=== PATIENT | male | born 1970 | race Caucasian/White ===

== ENCOUNTER 2019-02-03 15:29 | Emergency (ER) | payer MEDICARE, OTHER, SELFPAY ==
[2019-02-03 15:36] VITALS: BP 112/77; PULSE 96; RESP 19; TEMP 37.3; O2SAT 96; BMI 35.9
--- NOTE | 2019-02-03 15:45 | DI.RAD.S_ITS ---
PROCEDURE: XR LUMBAR SPINE 2-3V INDICATIONS: severe pain in lower back TECHNIQUE: 3 views of the lumbar spine were acquired. COMPARISON: None available. FINDINGS: Bones: 5 [id number] vertebrae are present. L5-S1 fixation hardware and intervertebral body spacer. No wes-hardware lucency seen. There is normal bony alignment. No vertebral body compression fractures. No suspicious bony lesions. Soft tissues: Overlying bowel gas pattern is normal. No suspicious soft tissue calcifications. IMPRESSION: No acute osseous abnormality. Dictated by: Con Morales M.D. on 02/03/2019 at 17:07 Approved by: Con Morales M.D. on 02/03/2019 at 17:09
[2019-02-03] MEDS: SODIUM CHLORIDE 0.9% 1,000 ML 1000 ML IV (17:20)
[2019-02-03 17:30] LABS: Add Manual Diff / Slide Review NO; Basophils Absolute Auto 0 /uL (0-100); Basophils Percent Auto 0.6 % (0-2); Eosinophils Absolute Auto 300 /uL (0-450); Eosinophils Percent Auto 3.8 % (2-4); Hematocrit 44.2 % (41-53); Hemoglobin 15.4 g/dL (13.5-17.5); Lymphocytes Absolute Auto 2000 /uL (1100-4500); Lymphocytes Percent Auto 25.4 % (25-40); Mean Corpuscular HGB Conc 34.8 % (30-36); Mean Corpuscular Hemoglobin 32.2 PG (26-34); Mean Corpuscular Volume 92.7 fL (80-100); Monocytes Absolute Auto 900 /uL (0-900); Monocytes Percent Auto 11.2 % (3-14); Neutrophils Absolute Auto 4600 /uL (1500-7000); Platelet Count 285 X10^3/uL (150-400); Red Blood Cell Count 4.77 X10^6/uL (4.5-5.9); Red Cell Distribution Width 14.1 % (11.6-14.8); White Blood Cell Count 7.7 X10^3/uL (4.5-11.0)
[2019-02-03 17:40] LABS: Alanine Aminotransferase 35 IU/L (21-72); Albumin 4.3 g/dL (3.5-5.0); Albumin Globulin Ratio 1.3 (1.0-2.8); Alkaline Phosphatase 61 U/L (38-126); Aspartate Aminotransferase 35 IU/L (17-59); BUN Creatinine Ratio 23.8 (6-22); Blood Urea Nitrogen 19 mg/dL (9-20); Calcium 9.7 mg/dL (8.4-10.2); Carbon Dioxide 25 mmol/L (22-32); Chloride 106 mmol/L (98-107); Estimated Glomerular Filt Rate > 60.0 mL/min (>60); Globulin 3.3 g/dL (1.7-4.1); Glucose 91 mg/dL (70-100); Potassium 3.9 mmol/L (3.4-5.1); Sodium 139 mmol/L (137-145); Total Protein 7.6 g/dL (6.3-8.2)
[2019-02-03 17:41] LABS: HEMOLYSIS 57 (0-50)
[2019-02-03 17:56] LABS: Procalcitonin < 0.05 ng/mL (<0.5)
[2019-02-03] MEDS: KETOROLAC 60 MG/2 ML VIAL IM (17:59)
[2019-02-03 18:05] VITALS: BP 121/69
[2019-02-03] MEDS: CYCLOBENZAPRINE 10 MG TABLET PO (19:15)
[2019-02-03 20:08] VITALS: BP 121/69; PULSE 77; RESP 18
--- NOTE | 2019-02-03 20:34 | ED.BACK ---
HPI - Back Pain/Injury <MICHELLE Esquivel - Last Filed: 02/03/19 20:38> General Chief Complaint: Back Pain/Injury Stated Complaint: back pain from physical therapy Time Seen by Provider: 02/03/19 16:11 Source: patient and family Mode of arrival: ambulatory Limitations: no limitations History of Present Illness HPI Narrative: The patient is a 48 year old male nonsmoker with history of hypertension who presents with a chief complaint of back pain. He states he has a history of back surgery. He states that his back pain got worse during physical therapy a few days ago. Now he cannot tolerate his pain. He has not taken any Tylenol or Motrin at home. He has tried ice. He denies any incontinence of bowel, incontinence of bladder saddle anesthesia. Denies any fever history of cancer. He denies any trauma. He states pain is cramping. His states that he has a cyst that has been present since his back surgery in 2012. He denies any dysuria urgency or frequency. Denies any fevers. Related Data Home Medications Medication Instructions Recorded Confirmed lisinopril 10 mg PO DAILY #0 02/10/16 02/03/19 sertraline [Zoloft] 200 mg PO DAILY #0 02/10/16 02/03/19 cholecalciferol (vitamin D3) 1,000 unit PO DAILY 02/03/19 02/03/19 levothyroxine 1 tab PO DAILY 02/03/19 02/03/19 methocarbamol 1,000 mg PO BID PRN 02/03/19 02/03/19 Previous Rx's Medication Instructions Recorded cyclobenzaprine 10 mg PO TID PRN #30 tab 02/03/19 ketorolac 10 mg PO TID PRN #30 tab 02/03/19 Allergies Allergy/AdvReac Type Severity Reaction Status Date / Time No Known Drug Allergies Allergy Verified 02/03/19 18:01 Review of Systems <MICHELLE Esquivel - Last Filed: 02/03/19 20:38> Review of Systems GENERAL: Denies chills, fatigue, malaise, fever, sweats. HEENT: Denies sinus pain, ear pain, sore throat, difficulty swallowing, dizziness. RESPIRATORY: Denies dyspnea, cough, wheezing, hemoptysis, sputum. CARDIOVASCULAR: Denies chest pain, palpitations, orthopnea, edema, GASTROINTESTINAL: Denies nausea, vomiting, abdominal pain, diarrhea, constipation, melena. : Denies dysuria, frequency, incontinence, hematuria, urinary retention. MUSCULOSKELETAL: See HPI SKIN: Denies rash, skin lesions, or other NEUROLOGIC: Denies weakness, headache, numbness, change in speech, confusion, seizures, incoordination. PSYCHIATRIC: No concerning psychosocial issues. 12 point review of systems is negative except for those stated above PFSH <MICHELLE Esquivel - Last Filed: 02/03/19 20:38> Medical History (Updated 02/03/19 @ 20:36 by MICHELLE Esquivel) Hypertension (Acute) Social History Smoking Status: Never smoker Social History Smoking Status: Never smoker Exam <MICHELLE Esquivel - Last Filed: 02/03/19 20:38> Narrative Exam Narrative: GENERAL: This is a well-nourished, well-developed patient, appears uncomfortable HEAD: Atraumatic. Normocephalic. No temporal or scalp tenderness. EYES: Pupils equal round and reactive. Extraocular motions intact. No scleral icterus. No injection or drainage. ENT: Nose without bleeding, purulent drainage or septal hematoma. Throat without erythema, tonsillar hypertrophy or exudate. Uvula midline. Airway patent. NECK: Trachea midline. No JVD or lymphadenopathy. Supple, nontender, no meningeal signs. CARDIOVASCULAR: Regular rate and rhythm without murmurs, gallops, or rubs. RESPIRATORY: Clear to auscultation. Breath sounds equal bilaterally. No wheezes, rales, or rhonchi. No cough. No increased respiratory effort. No accessory muscle use. GASTROINTESTINAL: Abdomen soft, non-tender, nondistended. No hepato-splenomegaly, or palpable masses. No guarding. EXTREMITIES: No clubbing, cyanosis, or edema. No joint tenderness, effusion, or edema noted. BACK: Pain to palpation of L-spine as well as bilateral paraspinal muscles of lumbar region. No pain to palpation of T-spine or C-spine. NEURO: AOx3. Strength is equal upper and lower extremities bilaterally. No gross cranial nerve deficit. Stable gait. Patient refused rectal exam. SKIN: No erythema rash ecchymosis laceration or abrasion noted over spine. Initial Vital Signs Initial Vital Signs: Vital Signs Temperature 99.1 F 02/03/19 15:36 Pulse Rate 96 H 02/03/19 15:36 Respiratory Rate 19 02/03/19 15:36 Blood Pressure 112/77 02/03/19 15:36 Pulse Oximetry 96 02/03/19 15:36 <Josh Kenyon DO - Last Filed: 02/04/19 07:31> Initial Vital Signs Initial Vital Signs: Vital Signs Temperature 99.1 F 02/03/19 15:36 Pulse Rate 96 H 02/03/19 15:36 Respiratory Rate 19 02/03/19 15:36 Blood Pressure 112/77 02/03/19 15:36 Pulse Oximetry 96 02/03/19 15:36 Course <MICHELLE Esquivel - Last Filed: 02/03/19 20:38> Orders Ordered: Discontinued Medications Cyclobenzaprine HCl (Flexeril) 10 mg PO NOW ONE Stop: 02/03/19 18:52 Last Admin: 02/03/19 19:15 Dose: 10 mg Sodium Chloride (Normal Saline 0.9%) 1,000 mls @ 1,000 mls/hr IV BOLUS ONE Stop: 02/03/19 18:10 Last Infusion: 02/03/19 18:35 Dose: 0 mls/hr Admin: 02/03/19 17:20 Dose: 1,000 mls/hr Ketorolac Tromethamine (Toradol) 60 mg IM NOW ONE Stop: 02/03/19 17:55 Last Admin: 02/03/19 17:59 Dose: 60 mg Vital Signs - 8 hr 02/03/19 15:36 02/03/19 18:05 02/03/19 20:08 Temperature 99.1 F Pulse Rate 96 H 77 Respiratory Rate 19 18 Blood Pressure 112/77 121/69 Blood Pressure [Right Arm] 121/69 Pulse Oximetry 96 <Josh Kenyon DO - Last Filed: 02/04/19 07:31> Orders Ordered: Discontinued Medications Cyclobenzaprine HCl (Flexeril) 10 mg PO NOW ONE Stop: 02/03/19 18:52 Last Admin: 02/03/19 19:15 Dose: 10 mg Sodium Chloride (Normal Saline 0.9%) 1,000 mls @ 1,000 mls/hr IV BOLUS ONE Stop: 02/03/19 18:10 Last Infusion: 02/03/19 18:35 Dose: 0 mls/hr Admin: 02/03/19 17:20 Dose: 1,000 mls/hr Ketorolac Tromethamine (Toradol) 60 mg IM NOW ONE Stop: 02/03/19 17:55 Last Admin: 02/03/19 17:59 Dose: 60 mg Vital Signs - 8 hr 02/03/19 15:36 02/03/19 18:05 02/03/19 20:08 Temperature 99.1 F Pulse Rate 96 H 77 Respiratory Rate 19 18 Blood Pressure 112/77 121/69 Blood Pressure [Right Arm] 121/69 Pulse Oximetry 96 MDM - Back Pain/Injury <CHRISSIE Esquivel- - Last Filed: 02/03/19 20:38> Lab Data Result diagrams: 02/03/19 17:16 02/03/19 17:16 Lab Results 02/03/19 02/03/19 02/03/19 Range/Units 17:16 17:16 17:16 WBC 7.7 (4.5-11.0) X10^3/uL RBC 4.77 (4.5-5.9) X10^6/uL Hgb 15.4 (13.5-17.5) g/dL Hct 44.2 (41-53) % MCV 92.7 (80-100) fL MCH 32.2 (26-34) PG MCHC 34.8 (30-36) % RDW 14.1 (11.6-14.8) % Plt Count 285 (150-400) X10^3/uL Neut % (Auto) 59.0 (50-75) % Lymph % (Auto) 25.4 (25-40) % [place] % (Auto) 11.2 (3-14) % Eos % (Auto) 3.8 (2-4) % Baso % (Auto) 0.6 (0-2) % Neut # (Auto) 4600 (9678-0179) /uL Lymph # (Auto) 2000 (4325-6921) /uL [place] # (Auto) 900 (0-900) /uL Eos # (Auto) 300 (0-450) /uL Baso # (Auto) 0 (0-100) /uL Sodium 139 (137-145) mmol/L Potassium 3.9 (3.4-5.1) mmol/L Chloride 106 (98-107) mmol/L Carbon Dioxide 25 (22-32) mmol/L BUN 19 (9-20) mg/dL Creatinine 0.80 (0.66-1.25) mg/dL Estimated GFR > 60.0 (>60) mL/min BUN/Creatinine Ratio 23.8 H (6-22) Glucose 91 (70-100) mg/dL Calcium 9.7 (8.4-10.2) mg/dL Total Bilirubin 1.0 (0.2-1.3) mg/dL AST 35 (17-59) IU/L ALT 35 (21-72) IU/L Alkaline Phosphatase 61 (38-126) U/L Total Protein 7.6 (6.3-8.2) g/dL Albumin 4.3 (3.5-5.0) g/dL Globulin 3.3 (1.7-4.1) g/dL Albumin/Globulin Ratio 1.3 (1.0-2.8) Procalcitonin < 0.05 (<0.5) ng/mL Urine Dip Bedside Urine Glucose Negative Bedside Urine Bilirubin + 1 Bedside Urine Ketone +/- 5 Urine Specific Ashley 1.030 Bedside Urine pH 6.0 Bedside Urine Protein +/- 15 Bedside Urine Urobilinogen - Negative Bedside Urine Nitrite - Negative Bedside Urine Leukocytes - Negative Esterase Imaging Data Lumbar x-ray: Radiologist's impression: [address] [address] XRay Report Signed Patient: Jace Marie#: [id number] : 1970Acct:[id number] Age/Sex: 48 / MDate of Service: 02/03/19 Loc: ED Accession Number: [id number] Procedure: XR lumbar spine 2-3V Ordering Provider: Barbara Wilson- PROCEDURE: XR LUMBAR SPINE 2-3V INDICATIONS: severe pain in lower back TECHNIQUE: 3 views of the lumbar spine were acquired. COMPARISON: None available. FINDINGS: Bones: 5 [id number] vertebrae are present. L5-S1 fixation hardware and intervertebral body spacer. No wes-hardware lucency seen. There is normal bony alignment. No vertebral body compression fractures. No suspicious bony lesions. Soft tissues: Overlying bowel gas pattern is normal. No suspicious soft tissue calcifications. IMPRESSION: No acute osseous abnormality. Dictated by: Con Morales M.D. on 02/03/2019 at 17:07 Approved by: Con Morales M.D. on 02/03/2019 at 17:09 [facility] Narrative Medical decision making narrative: The patient is a 48-year-old male who presents with a chief complaint of lower back pain. He was given Toradol as well as flexor in the emergency department felt much improved. He requested going to after this. He had a normal urinalysis. He is without neurological deficit, denies any incontinence of bowel, incontinence of bladder or saddle anesthesia. He declined a rectal exam in the ER. I discussed at length return precautions of any neurological deficit. Encouraged to follow up with PCP as well as his orthopedist. Discussed not taking any ibuprofen Aleve or any other NSAIDs along with the Toradol. Patient states understanding and has no questions regarding follow-up care or return precautions. His white count is normal, is procalcitonin is negative, in his renal function is good <Josh Kenyon, DO - Last Filed: 02/04/19 07:31> Lab Data Lab Results 02/03/19 02/03/19 02/03/19 Range/Units 17:16 17:16 17:16 WBC 7.7 (4.5-11.0) X10^3/uL RBC 4.77 (4.5-5.9) X10^6/uL Hgb 15.4 (13.5-17.5) g/dL Hct 44.2 (41-53) % MCV 92.7 (80-100) fL MCH 32.2 (26-34) PG MCHC 34.8 (30-36) % RDW 14.1 (11.6-14.8) % Plt Count 285 (150-400) X10^3/uL Neut % (Auto) 59.0 (50-75) % Lymph % (Auto) 25.4 (25-40) % [place] % (Auto) 11.2 (3-14) % Eos % (Auto) 3.8 (2-4) % Baso % (Auto) 0.6 (0-2) % Neut # (Auto) 4600 (4963-8548) /uL Lymph # (Auto) 2000 (1805-7444) /uL [place] # (Auto) 900 (0-900) /uL Eos # (Auto) 300 (0-450) /uL Baso # (Auto) 0 (0-100) /uL Sodium 139 (137-145) mmol/L Potassium 3.9 (3.4-5.1) mmol/L Chloride 106 (98-107) mmol/L Carbon Dioxide 25 (22-32) mmol/L BUN 19 (9-20) mg/dL Creatinine 0.80 (0.66-1.25) mg/dL Estimated GFR > 60.0 (>60) mL/min BUN/Creatinine Ratio 23.8 H (6-22) Glucose 91 (70-100) mg/dL Calcium 9.7 (8.4-10.2) mg/dL Total Bilirubin 1.0 (0.2-1.3) mg/dL AST 35 (17-59) IU/L ALT 35 (21-72) IU/L Alkaline Phosphatase 61 (38-126) U/L Total Protein 7.6 (6.3-8.2) g/dL Albumin 4.3 (3.5-5.0) g/dL Globulin 3.3 (1.7-4.1) g/dL Albumin/Globulin Ratio 1.3 (1.0-2.8) Procalcitonin < 0.05 (<0.5) ng/mL Urine Dip Bedside Urine Glucose Negative Bedside Urine Bilirubin + 1 Bedside Urine Ketone +/- 5 Urine Specific [place] 1.030 Bedside Urine pH 6.0 Bedside Urine Protein +/- 15 Bedside Urine Urobilinogen - Negative Bedside Urine Nitrite - Negative Bedside Urine Leukocytes - Negative Esterase Discharge Plan Departure Patient Disposition: Home Clinical Impression: Lumbar back pain Strain of lumbar region Qualifiers: Encounter type: initial encounter Qualified Code(s): S39.012A - Strain of muscle, fascia and tendon of lower back, initial encounter Discharge Date/Time: 02/03/19 19:55 Interventions: ED Discharge Assessment Last Done: 02/03/19 20:08 Instructions: DI for Back Spasm, DI for Back Strain or Sprain Activity Restrictions/Additional Instructions: I have given you a prescription of anti-inflammatories as well as a prescription of muscle relaxers for your back pain. Please do not combine the ketorolac with Aleve ibuprofen or any other NSAIDs Please follow up with primary care provider/orthopedist. Please come back to the emergency department for any acute concerns such as incontinence of bowel, incontinence of bladder or groin numbness. Prescriptions: New cyclobenzaprine 10 mg tablet 10 mg PO TID PRN (Reason: muscle spasm) Qty: 30 RF: 0 ketorolac 10 mg tablet 10 mg PO TID PRN (Reason: pain) Qty: 30 RF: 0 No Action sertraline [Zoloft] 100 MG tablet 200 mg PO DAILY Qty: 0 RF: 0 lisinopril 10 MG tablet 10 mg PO DAILY Qty: 0 RF: 0 methocarbamol 500 mg tablet 1,000 mg PO BID PRN (Reason: Spasms) RF: 0 cholecalciferol (vitamin D3) 1,000 unit capsule 1,000 unit PO DAILY RF: 0 levothyroxine 1 tab PO DAILY RF: 0 <Josh Kenyon DO - Last Filed: 02/04/19 07:31> [facility] ED Attending Meeta Attestation: I was available for consultation during this patient's emergency department encounter
--- NOTE | 2019-02-03 20:38 | ED_ITS ---
HPI - Back Pain/Injury <MICHELLE Esquivel - Last Filed: 02/03/19 20:38> General Chief Complaint: Back Pain/Injury Stated Complaint: back pain from physical therapy Time Seen by Provider: 02/03/19 16:11 Source: patient and family Mode of arrival: ambulatory Limitations: no limitations History of Present Illness HPI Narrative: The patient is a 48 year old male nonsmoker with history of h ypertension who presents with a chief complaint of back pain. He states he has a history of back surgery. He states that his back pain got worse during physical therapy a few days ago. Now he cannot tolerate his pain. He has not taken any Tylenol or Motrin at home. He has tried ice. He denies any incontinence of bowel, incontinence of bladder saddle anesthesia. Denies any fever history of cancer. He denies any trauma. He states pain is cramping. His states that he has a cyst that has been present since his back surgery in 2012. He denies any dysuria urgency or frequency. Denies any fevers. Related Data Home Medications Medication Instructions Recorded Confirmed lisinopril 10 mg PO DAILY #0 02/10/16 02/03/19 sertraline [Zoloft] 200 mg PO DAILY #0 02/10/16 02/03/19 cholecalciferol (vitamin D3) 1,000 unit PO DAILY 02/03/19 02/03/19 levothyroxine 1 tab PO DAILY 02/03/19 02/03/19 methocarbamol 1,000 mg PO BID PRN 02/03/19 02/03/19 Previous Rx's Medication Instructions Recorded cyclobenzaprine 10 mg PO TID PRN #30 tab 02/03/19 ketorolac 10 mg PO TID PRN #30 tab 02/03/19 Allergies Allergy/AdvReac Type Severity Reaction Status Date / Time No Known Drug Allergies Allergy Verified 02/03/19 18:01 Review of Systems <MICHELLE Esquivel - Last Filed: 02/03/19 20:38> Review of Systems GENERAL: Denies chills, fatigue, malaise, fever, sweats. HEENT: Denies sinus pain, ear pain, sore throat, difficulty swallowing, dizziness. RESPIRATORY: Denies dyspnea, cough, wheezing, hemoptysis, sputum. CARDIOVASCULAR: Denies chest pain, palpitations, orthopnea, edema, GASTROINTESTINAL: Denies nausea, vomiting, abdominal pain, diarrhea, constipation, melena. : Denies dysuria, frequency, incontinence, hematuria, urinary retention. MUSCULOSKELETAL: See HPI SKIN: Denies rash, skin lesions, or other NEUROLOGIC: Denies weakness, headache, numbness, change in speech, confusion, seizures, incoordination. PSYCHIATRIC: No concerning psychosocial issues. 12 point review of systems is negative except for those stated above PFSH <MICHELLE Esquivel - Last Filed: 02/03/19 20:38> Medical History (Updated 02/03/19 @ 20:36 by MICHELLE Esquivel) Hypertension (Acute) Social History Smoking Status: Never smoker Social History Smoking Status: Never smoker Exam <MICHELLE Esquivel - Last Filed: 02/03/19 20:38> Narrative Exam Narrative: GENERAL: This is a well-nourished, well-developed patient, appears uncomfortable HEAD: Atraumatic. Normocephalic. No temporal or scalp tenderness. EYES: Pupils equal round and reactive. Extraocular motions intact. No scleral icterus. No injection or drainage. ENT: Nose without bleeding, purulent drainage or septal hematoma. Throat without erythema, tonsillar hypertrophy or exudate. Uvula midline. Airway patent. NECK: Trachea midline. No JVD or lymphadenopathy. Supple, nontender, no meningeal signs. CARDIOVASCULAR: Regular rate and rhythm without murmurs, gallops, or rubs. RESPIRATORY: Clear to auscultation. Breath sounds equal bilaterally. No wheezes, rales, or rhonchi. No cough. No increased respiratory effort. No accessory muscle use. GASTROINTESTINAL: Abdomen soft, non-tender, nondistended. No hepato- splenomegaly, or palpable masses. No guarding. EXTREMITIES: No clubbing, cyanosis, or edema. No joint tenderness, effusion, or edema noted. BACK: Pain to palpation of L-spine as well as bilateral paraspinal muscles of lumbar region. No pain to palpation of T-spine or C-spine. NEURO: AOx3. Strength is equal upper and lower extremities bilaterally. No gross cranial nerve deficit. Stable gait. Patient refused rectal exam. SKIN: No erythema rash ecchymosis laceration or abrasion noted over spine. Initial Vital Signs Initial Vital Signs: Vital Signs Temperature 99.1 F 02/03/19 15:36 Pulse Rate 96 H 02/03/19 15:36 Respiratory Rate 19 02/03/19 15:36 Blood Pressure 112/77 02/03/19 15:36 Pulse Oximetry 96 02/03/19 15:36 <Josh Kenyon DO - Last Filed: 02/04/19 07:31> Initial Vital Signs Initial Vital Signs: Vital Signs Temperature 99.1 F 02/03/19 15:36 Pulse Rate 96 H 02/03/19 15:36 Respiratory Rate 02/03/19 15:36 Blood Pressure 112/77 02/03/19 15:36 Pulse Oximetry 96 02/03/19 15:36 Course <MICHELLE Esquivel - Last Filed: 02/03/19 20:38> Orders Ordered: Discontinued Medications Cyclobenzaprine HCl (Flexeril) 10 mg PO NOW ONE Stop: 02/03/19 18:52 Last Admin: 02/03/19 19:15 Dose: 10 mg Sodium Chloride (Normal Saline 0.9%) 1,000 mls @ 1,000 mls/hr IV BOLUS ONE Stop: 02/03/19 18:10 Last Infusion: 02/03/19 18:35 Dose: 0 mls/hr Admin: 02/03/19 17:20 Dose: 1,000 mls/hr Ketorolac Tromethamine (Toradol) 60 mg IM NOW ONE Stop: 02/03/19 17:55 Last Admin: 02/03/19 17:59 Dose: 60 mg Vital Signs - 8 hr 02/03/19 15:36 02/03/19 18:05 02/03/19 20:08 Temperature 99.1 F Pulse Rate 96 H 77 Respiratory Rate 19 18 Blood Pressure 112/77 121/69 Blood Pressure [Right Arm] 121/69 Pulse Oximetry 96 <Josh Kenyon DO - Last Filed: 02/04/19 07:31> Orders Ordered: Discontinued Medications Cyclobenzaprine HCl (Flexeril) 10 mg PO NOW ONE Stop: 02/03/19 18:52 Last Admin: 02/03/19 19:15 Dose: 10 mg Sodium Chloride (Normal Saline 0.9%) 1,000 mls @ 1,000 mls/hr IV BOLUS ONE Stop: 02/03/19 18:10 Last Infusion: 02/03/19 18:35 Dose: 0 mls/hr Admin: 02/03/19 17:20 Dose: 1,000 mls/hr Ketorolac Tromethamine (Toradol) 60 mg IM NOW ONE Stop: 02/03/19 17:55 Last Admin: 02/03/19 17:59 Dose: 60 mg Vital Signs - 8 hr 02/03/19 15:36 02/03/19 18:05 02/03/19 20:08 Temperature 99.1 F Pulse Rate 96 H 77 Respiratory Rate 19 18 Blood Pressure 112/77 121/69 Blood Pressure [Right Arm] 121/69 Pulse Oximetry 96 MDM - Back Pain/Injury <CHRISSIE Esquivel- - Last Filed: 02/03/19 20:38> Lab Data Result diagrams: 02/03/19 17:16 02/03/19 17:16 Lab Results 02/03/19 02/03/19 02/03/19 Range/Units 17:16 17:16 17:16 WBC 7.7 (4.5-11.0) X10^3/uL RBC 4.77 (4.5-5.9) X10^6/uL Hgb 15.4 (13.5-17.5) g/dL Hct 44.2 (41-53) % MCV 92.7 (80-100) fL MCH 32.2 (26-34) PG MCHC 34.8 (30-36) % RDW 14.1 (11.6-14.8) % Plt Count 285 (150-400) X10^3/uL Neut % (Auto) 59.0 (50-75) % Lymph % (Auto) 25.4 (25-40) % [place] % (Auto) 11.2 (3-14) % Eos % (Auto) 3.8 (2-4) % Baso % (Auto) 0.6 (0-2) % Neut # (Auto) 4600 (3289-0997) /uL Lymph # (Auto) 2000 (4561-6807) /uL [place] # (Auto) 900 (0-900) /uL Eos # (Auto) 300 (0-450) /uL Baso # (Auto) 0 (0-100) /uL Sodium 139 (137-145) mmol/L Potassium 3.9 (3.4-5.1) mmol/L Chloride 106 (98-107) mmol/L Carbon Dioxide 25 (22-32) mmol/L BUN 19 (9-20) mg/dL Creatinine 0.80 (0.66-1.25) mg/dL Estimated GFR > 60.0 (>60) mL/min BUN/Creatinine Ratio 23.8 H (6-22) Glucose 91 (70-100) mg/dL Calcium 9.7 (8.4-10.2) mg/dL Total Bilirubin 1.0 (0.2-1.3) mg/dL AST 35 (17-59) IU/L ALT 35 (21-72) IU/L Alkaline Phosphatase 61 (38-126) U/L Total Protein 7.6 (6.3-8.2) g/dL Albumin 4.3 (3.5-5.0) g/dL Globulin 3.3 (1.7-4.1) g/dL Albumin/Globulin Ratio 1.3 (1.0-2.8) Procalcitonin < 0.05 (<0.5) ng/mL Urine Dip Bedside Urine Glucose Negative Bedside Urine Bilirubin + 1 Bedside Urine Ketone +/- 5 Urine Specific [place] 1.030 Bedside Urine pH 6.0 Bedside Urine Protein +/- 15 Bedside Urine Urobilinogen - Negative Bedside Urine Nitrite - Negative Bedside Urine Leukocytes - Negative Esterase Imaging Data Lumbar x-ray: Radiologist's impression: [address] [address] XRay Report Signed Patient: Jace MarieMR#: [id number] : 1970Acct:[id number] Age/Sex: 48 / MDate of Service: 02/03/19 Loc: ED Accession Number: [id number] Procedure: XR lumbar spine 2-3V Ordering Provider: Barbara Wilson- PROCEDURE: XR LUMBAR SPINE 2-3V INDICATIONS: severe pain in lower back TECHNIQUE: 3 views of the lumbar spine were acquired. COMPARISON: None available. FINDINGS: Bones: 5 [id number] vertebrae are present. L5-S1 fixation hardware and intervertebral body spacer. No wes-hardware lucency seen. There is normal bony alignment. No vertebral body compression fractures. No suspicious bony lesions. Soft tissues: Overlying bowel gas pattern is normal. No suspicious soft tissue calcifications. IMPRESSION: No acute osseous abnormality. Dictated by: Con Morales M.D. on 02/03/2019 at 17:07 Approved by: Con Morales M.D. on 02/03/2019 at 17:09 [facility] Narrative Medical decision making narrative: The patient is a 48-year-old male who presents with a chief complaint of lower back pain. He was given Toradol as well as flexor in the emergency department felt much improved. He requested going to after this. He had a normal urinalysis. He is without neurological deficit, denies any incontinence of bowel, incontinence of bladder or saddle anesthesia. He declined a rectal exam in the ER. I discussed at length return precautions of any neurological deficit. Encouraged to follow up with PCP as well as his orthopedist. Discussed not taking any ibuprofen Aleve or any other NSAIDs along with the Toradol. Patient states understanding and has no questions regarding follow-up care or return precautions. His white count is normal, is procalcitonin is negative, in his renal function is good <Josh Kenyon, DO - Last Filed: 02/04/19 07:31> Lab Data Lab Results 02/03/19 02/03/19 02/03/19 Range/Units 17:16 17:16 17:16 WBC 7.7 (4.5-11.0) X10^3/uL RBC 4.77 (4.5-5.9) X10^6/uL Hgb 15.4 (13.5-17.5) g/dL Hct 44.2 (41-53) % MCV 92.7 (80-100) fL MCH 32.2 (26-34) PG MCHC 34.8 (30-36) % RDW 14.1 (11.6-14.8) % Plt Count 285 (150-400) X10^3/uL Neut % (Auto) 59.0 (50-75) % Lymph % (Auto) 25.4 (25-40) % [place] % (Auto) 11.2 (3-14) % Eos % (Auto) 3.8 (2-4) % Baso % (Auto) 0.6 (0-2) % Neut # (Auto) 4600 (0937-7224) /uL Lymph # (Auto) 2000 (6553-0604) /uL [place] # (Auto) 900 (0-900) /uL Eos # (Auto) 300 (0-450) /uL Baso # (Auto) 0 (0-100) /uL Sodium 139 (137-145) mmol/L Potassium 3.9 (3.4-5.1) mmol/L Chloride 106 (98-107) mmol/L Carbon Dioxide 25 (22-32) mmol/L BUN 19 (9-20) mg/dL Creatinine 0.80 (0.66-1.25) mg/dL Estimated GFR > 60.0 (>60) mL/min BUN/Creatinine Ratio 23.8 H (6-22) Glucose 91 (70-100) mg/dL Calcium 9.7 (8.4-10.2) mg/dL Total Bilirubin 1.0 (0.2-1.3) mg/dL AST 35 (17-59) IU/L ALT 35 (21-72) IU/L Alkaline Phosphatase 61 (38-126) U/L Total Protein 7.6 (6.3-8.2) g/dL Albumin 4.3 (3.5-5.0) g/dL Globulin 3.3 (1.7-4.1) g/dL Albumin/Globulin Ratio 1.3 (1.0-2.8) Procalcitonin < 0.05 (<0.5) ng/mL Urine Dip Bedside Urine Glucose Negative Bedside Urine Bilirubin + 1 Bedside Urine Ketone +/- 5 Urine Specific [place] 1.030 Bedside Urine pH 6.0 Bedside Urine Protein +/- 15 Bedside Urine Urobilinogen - Negative Bedside Urine Nitrite - Negative Bedside Urine Leukocytes - Negative Esterase Discharge Plan Departure Patient Disposition: Home Clinical Impression: Lumbar back pain Strain of lumbar region Qualifiers: Encounter type: initial encounter Qualified Code(s): S39.012A - Strain of muscle, fascia and tendon of lower back, initial encounter Discharge Date/Time: 02/03/19 19:55 Interventions: ED Discharge Assessment Last Done: 02/03/19 20:08 Instructions: DI for Back Spasm, DI for Back Strain or Sprain Activity Restrictions/Additional Instructions: I have given you a prescription of anti-inflammatories as well as a prescription of muscle relaxers for your back pain. Please do not combine the ketorolac with Aleve ibuprofen or any other NSAIDs Please follow up with primary care provider/orthopedist. Please come back to the emergency department for any acute concerns such as incontinence of bowel, incontinence of bladder or groin numbness. Prescriptions: New cyclobenzaprine 10 mg tablet 10 mg PO TID PRN (Reason: muscle spasm) Qty: 30 RF: 0 ketorolac 10 mg tablet 10 mg PO TID PRN (Reason: pain) Qty: 30 RF: 0 No Action sertraline [Zoloft] 100 MG tablet 200 mg PO DAILY Qty: 0 RF: 0 lisinopril 10 MG tablet 10 mg PO DAILY Qty: 0 RF: 0 methocarbamol 500 mg tablet 1,000 mg PO BID PRN (Reason: Spasms) RF: 0 cholecalciferol (vitamin D3) 1,000 unit capsule 1,000 unit PO DAILY RF: 0 levothyroxine 1 tab PO DAILY RF: 0 <Josh Kenyon DO - Last Filed: 02/04/19 07:31> [facility] Att[facility]: I was available for consultation during this patient's emergency department encounter
== END 2019-02-03 19:55 | disposition home or self-care (01) ==
PROVIDERS: Emergency Provider Nurse Practitioner Family
DX: S39.012A Strain of muscle, fascia and tendon of lower back, initial encounter (principal)
CPT/HCPCS: 36415; 36591; 72100; 80053; 81003; 84145; 85025; 96360; 96361; 96372; 99283; 99284; J1885

== ENCOUNTER 2019-02-14 12:33 | Emergency (ER) | payer MEDICARE, OTHER, SELFPAY ==
[2019-02-14 12:35] VITALS: BP 133/76; PULSE 92; RESP 18; TEMP 36.9; O2SAT 98
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
[2019-02-14] MEDS: HYDROMORPHONE 1 MG INJ IV (13:30)
[2019-02-14] MEDS: ONDANSETRON 4 MG/2 ML INJ IV ×2 (13:30→15:55)
[2019-02-14] MEDS: SODIUM CHLORIDE 0.9% 1,000 ML 1000 ML IV (13:30)
[2019-02-14] MEDS: PROPARACAINE 0.5% OPHTH SOL 1 DROPS EYE-LEFT (13:39)
[2019-02-14 14:08] VITALS: BP 113/62; PULSE 77; RESP 93; O2SAT 98
[2019-02-14 15:00] VITALS: BP 103/60; PULSE 79; RESP 16; O2SAT 97
[2019-02-14] MEDS: KETOROLAC 60 MG/2 ML VIAL 30 MG IV (15:55)
[2019-02-14 15:58] VITALS: BP 103/50; PULSE 80; RESP 18; O2SAT 98
[2019-02-14] MEDS: HYDROCODONE/ACET 10/325 TABLET 1 TAB PO (16:00)
== END 2019-02-14 16:08 | disposition home or self-care (01) ==
PROVIDERS: Emergency Provider Emergency Medicine
DX: S05.12XA Contusion of eyeball and orbital tissues, left eye, initial encounter (principal)
CPT/HCPCS: 70450; 70487; 72125; 96361; 96374; 96375; 96376; 99283; 99285; J1170; J1885; J2405; Q9967

== ENCOUNTER 2020-02-22 23:51 | Emergency (ER) | payer MEDICARE, OTHER, SELFPAY ==
--- NOTE | 2020-02-22 23:53 | ED_ITS ---
HPI - Ear Problem General Chief complaint: Ear Stated complaint: got water in ear/getting worse Time Seen by Provider: 02/22/20 23:52 Source: patient and family Mode of arrival: Ambulatory Limitations: no limitations History of Present Illness HPI Narrative: 49-year-old nonsmoker with history hypothyroidism presents with few days of worsening left ear pain and now drainage. He states that he was in the shower and got some water in his left ear a few days ago and since then his symptoms have greatly worsened. He states that he picked at it bit with his finger, also inserted a Q-tip. He denies any traumatic injury. He has had no fever or chills but does admit to pain in his left jaw, pain with chewing. He does have some drainage and decreased ability to hear. He is not diabetic. He denies any runny nose, sore throat or fever or chills. MD Complaint: ear pain, ear discharge and decreased hearing Location: left ear Duration: constant Severity: severe Relieving factors: nothing Exacerbating factors: chewing and palpation Discharge from ear: yes - purulent Associated symptoms ear: decreased hearing, headache, external ear tenderness and ear swelling Treatment prior to arrival: none Related Data Home Medications Medication Instructions Recorded Confirmed lisinopril 10 mg PO DAILY #0 02/10/16 02/14/19 sertraline [Zoloft] 200 mg PO DAILY #0 02/10/16 02/14/19 cholecalciferol (vitamin D3) 1,000 unit PO DAILY 02/03/19 02/14/19 levothyroxine 1 tab PO DAILY 02/03/19 02/14/19 methocarbamol 750 mg PO DAILY PRN 02/03/19 02/14/19 Previous Rx's Medication Instructions Recorded hydrocodone-acetaminophen 1 tab PO Q4-6H PRN #7 tab 02/14/19 ondansetron 4 mg PO Q6H PRN #10 tab 02/14/19 ciprofloxacin HCl 750 mg PO BID #10 tab 02/23/20 ciprofloxacin-dexamethasone 4 drop EAR-LEFT BID #7.5 ml 02/23/20 [Ciprodex] Allergies Allergy/AdvReac Type Severity Reaction Status Date / Time No Known Drug Allergies Allergy Verified 02/14/19 12:38 Review of Systems Review of Systems ROS Unobtainable: All systems reviewed & are unremarkable except as noted in HPI and below Constitutional Constitutional: Denies chills, Denies fatigue, Denies fever(s), Denies frequent falls, Reports headache(s), Denies lethargy and Denies weakness Eyes Eyes: Denies change in vision, Denies eye discharge, Denies irritation and Denies loss of vision ENT Ears, Nose, Mouth, and Throat: Denies change in voice, Denies dizziness, Reports ear discharge, Reports otalgia, Reports headache(s), Denies neck pain, Denies sore throat and Denies throat swelling Cardiovascular Cardiovascular: Denies chest pain, Denies irregular heart rhythm, Denies lightheadedness, Denies palpitations, Denies dyspnea, Denies dyspnea on exertion and Denies orthopnea Respiratory Respiratory: Denies cough, Denies dyspnea, Denies dyspnea on exertion and Denies wheezing Gastrointestinal Gastrointestinal: Denies abdominal pain, Denies change in bowel habits, Denies diarrhea, Denies nausea and Denies vomiting Musculoskeletal Musculoskeletal: Denies neck pain and Denies numbness Integumentary/Breasts Skin/Breast: Denies pruritus, Denies erythema, Denies rash and Denies wounds Neurologic Neurologic: Denies behavioral changes, Denies confusion, Denies dizziness, Denies frequent falls, Reports headache(s), Denies loss of vision, Denies numbness and Denies weakness Psychiatric Psychiatric: Denies anxiety, Denies behavioral changes, Denies confusion, Denies depression, Denies homicidal ideation and Denies suicidal ideation Endocrine Endocrine: Denies fatigue, Denies flushing and Denies palpitations Hematologic/Lymphatic Hematologic/Lymphatic: Denies easy bruising Allergic/Immunologic Allergic/Immunologic: Denies urticaria, Denies throat swelling and Denies wheezing Patient History Medical History Hypertension (Acute) Surgical History Previous back surgery (Acute) Social History Smoking Status: Never smoker Smoking Status: Never smoker alcohol intake frequency: a few times a month Substance Use Type: does not use Exam Narrative Exam Narrative: GENERAL: [49] year old patient appears stated age. Well- nourished, well-developed patient, in obvious pain. HEAD: Atraumatic. Normocephalic. EYES: Pupils equal round and reactive. Extraocular motions intact. No scleral icterus. No injection or drainage. ENT: L EAC edematous with purulent drainage. TM appears stewart with normal l andmarks. No pinna swelling, though very painful with external manipulation. L mastoid TTP, no erythema, edema, bogginess. Nose without bleeding, purulent drainage. Throat without erythema, tonsillar hypertrophy or exudate. Airway patent. NECK: Trachea midline. Non tender CARDIOVASCULAR: Regular rate and rhythm without murmurs, gallops, or rubs. RESPIRATORY: Clear to auscultation. Breath sounds equal bilaterally. No wheezes, rales, or rhonchi. GASTROINTESTINAL: Abdomen soft, non-tender, nondistended. EXTREMITIES: No edema or joint tenderness. BACK: Nontender without deformity or crepitance. No flank tenderness. NEURO: AOx3. SKIN: No rash or erythema of visible areas Initial Vital Signs Initial Vital Signs: Vital Signs Temperature 98 F 02/22/20 23:59 Pulse Rate 95 H 02/22/20 23:59 Respiratory Rate 18 02/22/20 23:59 Blood Pressure 144/72 H 02/22/20 23:59 Pulse Oximetry 98 02/22/20 23:59 Course Orders Ordered: ED Orders 02/23/20 00:41 CT mastoid temporal Stat 02/23/20 00:45 Basic Metabolic Panel Stat C-Reactive Protein Quant Stat Complete Blood Count AUTO DIFF Stat Erythrocyte Sedimentation Rate Stat Ciprofloxacin (Cipro) 400 mg in 200 mls @ 200 mls/hr IV NOW OMAR Last Admin: 02/23/20 01:00 Dose: 200 mls/hr Documented by: AIXA Discontinued Medications Hydrocodone Bitart/Acetaminophen (Vicodin 5/325 Prepack) 1 bottle MISC SEEINSTR ONE Stop: 02/23/20 01:46 Last Admin: 02/23/20 01:51 Dose: 1 bottle Documented by: AMAURI Sodium Chloride (Normal Saline 0.9%) 1,000 mls @ 1,000 mls/hr IV BOLUS ONE Stop: 02/23/20 01:32 Last Admin: 02/23/20 01:00 Dose: 1,000 mls/hr Documented by: AIXA Ketorolac Tromethamine (Toradol) 15 mg IV NOW ONE Stop: 02/23/20 00:35 Last Admin: 02/23/20 01:00 Dose: 15 mg Documented by: AIXA Consultations Consultation #1: call to ENT given concern for malignant otitis externa. Dr. Klein requests Kaye, follow up in office later today. Call at 0730 for appointment. Time: 00:10 Vital Signs Vital signs: Vital Signs - 8 hr 02/22/20 23:59 02/23/20 01:55 Temperature 98 F Pulse Rate 95 H 74 Respiratory Rate 18 16 Blood Pressure 144/72 H 125/77 Pulse Oximetry 98 100 Medical Decision Making Lab Data Result diagrams: 02/23/20 00:45 02/23/20 00:45 Labs: Lab Results 02/23/20 02/23/20 Range/Units 00:45 00:45 WBC 10.4 (4.5-11.0) X10^3/uL RBC 4.72 (4.5-5.9) X10^6/uL Hgb 15.0 (13.5-17.5) g/dL Hct 43.4 (41-53) % MCV 91.9 (80-100) fL MCH 31.8 (26-34) PG MCHC 34.6 (30-36) % RDW 14.1 (11.6-14.8) % Plt Count 282 (150-400) X10^3/uL Neut % (Auto) 67.7 (50-75) % Lymph % (Auto) 19.6 L (25-40) % [place] % (Auto) 9.1 (3-14) % Eos % (Auto) 3.0 (2-4) % Baso % (Auto) 0.6 (0-2) % Neut # (Auto) 7100 H (3553-3964) /uL Lymph # (Auto) 2000 (6847-1507) /uL [place] # (Auto) 900 (0-900) /uL Eos # (Auto) 300 (0-450) /uL Baso # (Auto) 100 (0-100) /uL ESR 2 (0-15) MM/HR Sodium 140 (137-145) mmol/L Potassium 4.4 (3.4-5.1) mmol/L Chloride 106 (98-107) mmol/L Carbon Dioxide 27 (22-32) mmol/L BUN 18 (9-20) mg/dL Creatinine 0.92 (0.66-1.25) mg/dL Estimated GFR > 60.0 (>60) mL/min BUN/Creatinine Ratio 19.6 (6-22) Glucose 103 H (70-100) mg/dL Calcium 9.3 (8.4-10.2) mg/dL C-Reactive Protein 1.3 H (<1.0) mg/dL Imaging Data CT Mastoid: Radiologist's Impression: Bilateral mastoid air cells are clear. Small amount of fluid is present in the left middle ear cavity and edema of left external auditory canal.No bone erosion or destruction Discharge Plan Departure Patient Disposition: Home Clinical Impression: Otitis externa Qualifiers: Otitis externa type: unspecified type Chronicity: acute Laterality: left Qualified Code(s): H60.502 - Unspecified acute noninfective otitis externa, left ear Instructions: Otitis Externa Activity Restrictions/Additional Instructions: *You have been diagnosed with [acute otitis externa] *What to do: *Take medications as directed * I have spoken with Dr. Klein (ENT) and he wants to see you later today. His office starts answering the phones at 0730, please call and let them know t hat you were seen in the emergency department and that I (Dr. Morris) spoke with Dr. Klein and he wants to see you today. *Return to ER if you should have any new, worsening or concerning symptoms Prescriptions: New ciprofloxacin HCl 750 mg tablet 750 mg PO BID Qty: 10 RF: 0 Ciprodex 0.3-0.1 % drops,suspension 4 drop EAR-LEFT BID Qty: 7.5 RF: 0 No Action sertraline [Zoloft] 100 MG tablet 200 mg PO DAILY Qty: 0 RF: 0 lisinopril 10 MG tablet 10 mg PO DAILY Qty: 0 RF: 0 methocarbamol 500 mg tablet 750 mg PO DAILY PRN (Reason: Spasms) RF: 0 cholecalciferol (vitamin D3) 1,000 unit capsule 1,000 unit PO DAILY RF: 0 levothyroxine 1 tab PO DAILY RF: 0 hydrocodone-acetaminophen 5-325 mg tablet 1 tab PO Q4-6H PRN (Reason: pain) Qty: 7 RF: 0 ondansetron 4 mg tablet,disintegrating 4 mg PO Q6H PRN (Reason: nausea and vomiting) Qty: 10 RF: 0 Referrals: Howie Klein MD [Physician] - Mundo Dinero ARNP [Primary Care Provider] -
[2020-02-22 23:59] VITALS: BP 144/72; PULSE 95; RESP 18; TEMP 36.6; O2SAT 98
--- NOTE | 2020-02-23 | PC.NURSE ---
Pt states he was taking a shower and got water in his L ear. used a QTip to help get it out which caused pain. Per , states when she looked into his ear she saw that it was oozing and appeared swollen.
--- NOTE | 2020-02-23 00:41 | DI.CT.S_ITS ---
PROCEDURE: CT MASTOID TEMPORAL INDICATIONS: pain on mastoid, obvious otitis externa COMPARISON: [facility], CT, CT FACIAL BONES W CON, 02/14/2019, 13:42. [facility], CT, CT CERVICAL SPINE WO CON, 02/14/2019, 12:52. [facility], CT, CT HEAD/BRAIN WO CON, 02/14/2019, 12:52. TECHNIQUE: Noncontrast 0.6 mm thick direct axial and coronal sections acquired through each temporal bone separately. FINDINGS: Image quality: Excellent. RIGHT: External auditory canal: Canal has a normal appearance. Middle ear: The middle ear structures, including the ossicles and tympanic membrane, appear normal. There is minimal amount of fluid present. Inner ear: Inner ear is normally formed and appears unremarkable. Facial nerve appears normal throughout is course. Mastoids: Mastoid air cells are clear. LEFT: External auditory canal: Canal demonstrates minimal edema. Middle ear: The middle ear structures, including the ossicles and tympanic membrane, appear normal. Minimal to mild fluid is present. Inner ear: Inner ear is normally formed and appears unremarkable. Facial nerve appears normal throughout its course. Mastoids: Mastoid air cells are clear. MISCELLANEOUS: Visualized surrounding bones appear unremarkable. Visualized intracranial structures, including the cerebellopontine angle cisterns, appear normal. IMPRESSION: 1. Minimal to mild bilateral male air-fluid with mild edema of the right external auditory canal. Recommend correlation to otitis. The above findings are concordant with preliminary report. Dictated by: Stephany Muro M.D. on 02/23/2020 at 11:42 Approved by: Stephany Muro M.D. on 02/23/2020 at 11:49
[2020-02-23 00:56] LABS: Add Manual Diff / Slide Review NO; Basophils Absolute Auto 100 /uL (0-100); Basophils Percent Auto 0.6 % (0-2); Eosinophils Absolute Auto 300 /uL (0-450); Hematocrit 43.4 % (41-53); Lymphocytes Absolute Auto 2000 /uL (1100-4500); Lymphocytes Percent Auto 19.6 % (25-40); Mean Corpuscular HGB Conc 34.6 % (30-36); Mean Corpuscular Hemoglobin 31.8 PG (26-34); Mean Corpuscular Volume 91.9 fL (80-100); Monocytes Absolute Auto 900 /uL (0-900); Monocytes Percent Auto 9.1 % (3-14); Neutrophils Absolute Auto 7100 /uL (1500-7000); Neutrophils Percent Auto 67.7 % (50-75); Platelet Count 282 X10^3/uL (150-400); Red Blood Cell Count 4.72 X10^6/uL (4.5-5.9); Red Cell Distribution Width 14.1 % (11.6-14.8); White Blood Cell Count 10.4 X10^3/uL (4.5-11.0)
[2020-02-23] MEDS: CIPROFLOXACIN 400 MG/200 ML PIGGYBACK 200 MG IV (01:00)
[2020-02-23] MEDS: SODIUM CHLORIDE 0.9% 1,000 ML 1000 ML IV (01:00)
[2020-02-23] MEDS: KETOROLAC 60 MG/2 ML VIAL 15 MG IV (01:00)
[2020-02-23 01:05] LABS: BUN Creatinine Ratio 19.6 (6-22); Blood Urea Nitrogen 18 mg/dL (9-20); C-Reactive Protein Quant 1.3 mg/dL (<1.0); Calcium 9.3 mg/dL (8.4-10.2); Carbon Dioxide 27 mmol/L (22-32); Chloride 106 mmol/L (98-107); Estimated Glomerular Filt Rate > 60.0 mL/min (>60); Glucose 103 mg/dL (70-100); HEMOLYSIS 49 (0-50); Potassium 4.4 mmol/L (3.4-5.1); Sodium 140 mmol/L (137-145)
[2020-02-23 01:10] LABS: Erythrocyte Sedimentation Rate 2 MM/HR (0-15)
[2020-02-23] MEDS: HYDROCODONE/ACET 5/325 PREPACK 1 BOTTLE MISC (01:51)
[2020-02-23 01:55] VITALS: BP 125/77; PULSE 74; RESP 16; O2SAT 100
== END 2020-02-23 02:12 | disposition home or self-care (01) ==
PROVIDERS: Emergency Provider Emergency Medicine; PCP Nurse Practitioner Family
DX: H60.502 Unspecified acute noninfective otitis externa, left ear (principal)
CPT/HCPCS: 36415; 70480; 80048; 85025; 85651; 86140; 96365; 96375; 99284; J0744; J1885

== ENCOUNTER 2020-02-24 18:05 | Emergency (ER) | payer MEDICARE, OTHER, SELFPAY ==
[2020-02-24 18:11] VITALS: PULSE 96; O2SAT 97
[2020-02-24 18:12] VITALS: BP 143/91; PULSE 97; RESP 17; TEMP 37.7; O2SAT 97; BMI 34.8
[2020-02-24 18:30] VITALS: PULSE 91; O2SAT 95
[2020-02-24] MEDS: MORPHINE 4 MG/ML INJ IV ×2 (18:34→20:01)
[2020-02-24 18:40] VITALS: BP 135/90; PULSE 88; O2SAT 96
[2020-02-24 18:46] LABS: Add Manual Diff / Slide Review NO; Basophils Absolute Auto 100 /uL (0-100); Basophils Percent Auto 0.6 % (0-2); Eosinophils Absolute Auto 200 /uL (0-450); Eosinophils Percent Auto 2.2 % (2-4); Hematocrit 44.1 % (41-53); Hemoglobin 15.3 g/dL (13.5-17.5); Lymphocytes Absolute Auto 1800 /uL (1100-4500); Lymphocytes Percent Auto 17.2 % (25-40); Mean Corpuscular HGB Conc 34.7 % (30-36); Mean Corpuscular Hemoglobin 31.9 PG (26-34); Mean Corpuscular Volume 91.9 fL (80-100); Monocytes Absolute Auto 1000 /uL (0-900); Neutrophils Absolute Auto 7600 /uL (1500-7000); Platelet Count 287 X10^3/uL (150-400); Red Cell Distribution Width 13.6 % (11.6-14.8); White Blood Cell Count 10.6 X10^3/uL (4.5-11.0)
[2020-02-24] MEDS: ONDANSETRON 4 MG/2 ML INJ IV (18:47)
[2020-02-24 18:58] LABS: Lactate (Lactic Acid) 0.7 mmol/L (0.7-2.1)
[2020-02-24 19:01] LABS: C-Reactive Protein Quant 5.8 mg/dL (<1.0)
[2020-02-24 19:26] LABS: Procalcitonin < 0.05 ng/mL (<0.5)
--- NOTE | 2020-02-24 19:34 | PC.NURSE ---
Could not visualize tympanic membrane due to ear packing. The patient complains of left ear tenderness that radiates to the back of his head, down to the back of his neck, and to his left neck and partial shoulder
[2020-02-24] MEDS: OXYCODONE/ACETAMINOPHEN 5/325 TABLET 1 TAB PO (20:01)
[2020-02-24] MEDS: KETOROLAC 60 MG/2 ML VIAL 15 MG IV (20:01)
[2020-02-24] MEDS: ACETAMINOPHEN 325 MG TABLET PO (20:01)
[2020-02-24] MEDS: OXYCODONE/APAP 5/325 PREPACK 1 BOTTLE MISC (20:02)
[2020-02-24] MEDS: ONDANSETRON 4 MG ODT PREPACK 1 BOTTLE MISC (20:02)
--- NOTE | 2020-02-24 20:16 | ED.EAR ---
HPI - Ear Problem <JAGRUTI Flynn - Last Filed: 02/24/20 23:04> General Chief complaint: Ear Stated complaint: left ear infection/fever Time Seen by Provider: 02/24/20 18:07 Source: patient and family Mode of arrival: Ambulatory Limitations: no limitations History of Present Illness HPI Narrative: This is a 49-year-old male, nonsmoker, who presents to ED with spouse with chief complain of increasing left ear pain and fever with chills. Patient was evaluated 2 nights ago for left ear pain and was discharged to home with diagnosis of otitis externa. He had blood tests, CT scan done and received IV Cipro that time. He was evaluated by Dr. Klein yesterday and had an ear wick inserted. He has been taking Cipro orally and just started Cipro ear drops this afternoon at 1500 since it had to be ordered since he was not in stock. Patient reports pain is 9/10 and radiating to left shoulder, jaw and head. Patient denies history of diabetes or is immunocompromised. Patient reports he was picking left ear to remove water in the affected ear after shower. Patient has history of hypertension, hypothyroidism. Patient does have follow-up appointment with Dr. Klein in 5 days. Related Data Home Medications Medication Instructions Recorded Confirmed lisinopril 10 mg PO DAILY #0 02/10/16 02/24/20 sertraline [Zoloft] 200 mg PO DAILY #0 02/10/16 02/14/19 cholecalciferol (vitamin D3) 1,000 unit PO DAILY 02/03/19 02/24/20 levothyroxine 1 tab PO DAILY 02/03/19 02/24/20 Previous Rx's Medication Instructions Recorded hydrocodone-acetaminophen 1 tab PO Q4-6H PRN #7 tab 02/14/19 ondansetron 4 mg PO Q6H PRN #10 tab 02/14/19 ciprofloxacin HCl 750 mg PO BID #10 tab 02/23/20 ciprofloxacin-dexamethasone 4 drop EAR-LEFT BID #7.5 ml 02/23/20 [Ciprodex] ondansetron 4 mg PO Q8H PRN #10 tab 02/24/20 oxycodone-acetaminophen [Percocet] 1 - 2 tab PO QID PRN #14 tab 02/24/20 Allergies Allergy/AdvReac Type Severity Reaction Status Date / Time No Known Drug Allergies Allergy Verified 02/14/19 12:38 Review of Systems <JAGRUTI Flynn - Last Filed: 02/24/20 23:04> Review of Systems Narrative: General: See HPI HEENT: See HPI Respiratory: Denies dyspnea, cough, wheezing, hemoptysis, sputum. Cardiovascular: Denies chest pain, palpitations, orthopnea, edema. Gastrointestinal: Denies nausea, vomiting, abdominal pain, diarrhea, constipation, melena. Has been hydrating well with liquid but hurts to chew. : Denies dysuria, frequency, incontinence, hematuria, urinary retention. Musculoskeletal: Denies weakness, joint pain or bony pain. Skin: Denies rash, skin lesions, or other. Neurologic: Denies weakness, (+) headache, numbness, change in speech, confusion, seizures, incoordination. Psychiatric: No concerning psychosocial issues. 12-point review of systems is negative except for those stated above. Patient History <JAGRUTI Flynn - Last Filed: 02/24/20 23:04> Medical History Depression (Acute) Hypertension (Acute) Hypothyroidism (Acute) Surgical History Previous back surgery (Acute) Social History Smoking Status: Never smoker Smoking Status: Never smoker alcohol intake frequency: a few times a month Substance Use Type: does not use Exam <JAGRUTI Flynn - Last Filed: 02/24/20 23:04> Narrative Exam Narrative: GEN: Alert, oriented x 3, well nourished, and in moderate distress from discomfort. Head: Normal cephalic, atraumatic. No scalp or temporal tenderness, palpable mass or rash. EYES: Pupils are equal, round, and reactive to light and accommodation. Extraocular muscles are intact bilaterally. There is no subconjunctival hemorrhage, exudate and sclera non-icteric. ENT: Right auditory canals and tympanic membranes clear. Left external auditory canal slightly erythematous with purulent discharge. TM appears to be stewart. Reports decreased hearing in left ear. Nose without bleeding, purulent discharge or deviation. Left Jaw and facial/mastoid discomfort without obvious redness or swelling. Mucous membrane moist, no mucosal lesion. Throat without erythema, tonsillar hypertrophy or exudate. Uvula in midline, airway patent. Neck: Trachea in midline. No JVD, tender with lymphadenopathy in left anterior cervical and supraclavical nodes. No masses or thyroid megaly. Supple, non-tender and no meningeal signs. CARDIAC: Normal regular rate and rhythm without murmurs, gallops, or rubs. No chest wall tenderness. No peripheral edema, cyanosis or pallor. Capillary refill is less than 2 seconds. RESPIRATORY: Lungs are clear to auscultate bilaterally. No cough, wheezes, rales, or rhonchi. No stridor, respiratory distress, increase work of breathing, or accessary muscle used. ABD: Abdomen soft, nontender and non-distended. No guarding or rebound tenderness to palpate. Bowel sounds are normal in all 4 quadrants. There is no palpable masses or organomegaly. EXT: Full painless ROM of all extremities with no loss of sensation, strength, effusion or edema. SKIN: Warm, dry, normal color for patient. No erythema, lesions or rash over visible areas. BACK: Nontender without deformity or crepitance. No flank tenderness. NEUROLOGICAL: Alert and oriented to place, time and person. Sensation and motor function intact bilaterally. No facial droops, dysphasia. PSYCHIATRIC: Good judgement and reason, without hallucinations, abnormal affect or abnormal behaviors during the examination. Patient is not suicidal. Initial Vital Signs Initial Vital Signs: Vital Signs Pulse Rate 96 H 02/24/20 18:11 Pulse Oximetry 97 02/24/20 18:11 <Marco Morris DO - Last Filed: 02/25/20 01:22> Initial Vital Signs Initial Vital Signs: Vital Signs Pulse Rate 96 H 02/24/20 18:11 Pulse Oximetry 97 02/24/20 18:11 Scores <JAGRUTI Flynn - Last Filed: 02/24/20 23:04> GCS Lake coma scale eye opening: Spontaneous [place] coma scale verbal response: Orientated Judie coma scale motor response: Obey commands Judie coma scale total score: 15 qSOFA Altered Mental Status (GCS <15): No Respiratory rate greater than/equal to 22: No Systolic blood pressure less than or equal to 100: No qSOFA Total: 0 0-1 Not High Risk 1-3 High risk Course <Zachary Lexie-JAGRUTI Tejeda - Last Filed: 02/24/20 23:04> Orders Ordered: ED Orders 02/24/20 18:37 C-Reactive Protein Quant Stat Complete Blood Count AUTO DIFF Stat Lactate (Lactic Acid) Stat Procalcitonin Stat 02/24/20 19:00 Blood Culture Stat Discontinued Medications Acetaminophen (Tylenol) 325 mg PO NOW ONE Stop: 02/24/20 19:50 Last Admin: 02/24/20 20:01 Dose: 325 mg Documented by: HELLEN Ketorolac Tromethamine (Toradol) 15 mg IV NOW ONE Stop: 02/24/20 19:49 Last Admin: 02/24/20 20:01 Dose: 15 mg Documented by: HELELN Morphine Sulfate (Morphine) 4 mg IV NOW ONE Stop: 02/24/20 18:20 Last Admin: 02/24/20 18:34 Dose: 4 mg Documented by: HELLEN Morphine Sulfate (Morphine) 4 mg IV NOW ONE Stop: 02/24/20 19:49 Last Admin: 02/24/20 20:01 Dose: 4 mg Documented by: HELLEN Ondansetron HCl (Zofran) 4 mg IV NOW ONE Stop: 02/24/20 18:44 Last Admin: 02/24/20 18:47 Dose: 4 mg Documented by: HELLEN Ondansetron HCl (Zofran Odt Prepack) 1 bottle MISC SEEINSTR ONE Stop: 02/24/20 19:51 Last Admin: 02/24/20 20:02 Dose: 1 bottle Documented by: HELLEN Oxycodone/Acetaminophen (Percocet 5/325) 1 tab PO NOW ONE Stop: 02/24/20 19:49 Last Admin: 02/24/20 20:01 Dose: 1 tab Documented by: HELLEN Oxycodone/Acetaminophen (Endocet 5/325 Prepack) 1 bottle MISC SEEINSTR ONE Stop: 02/24/20 19:51 Last Admin: 02/24/20 20:02 Dose: 1 bottle Documented by: HELLEN Reevaluation(s) Reevaluation #1: Pain improved after morphine. Time: 19:20 Consultations Consultation #1: Dr. Macias (ENT) consulted with physical findings and lab test results. He was recommended to follow up with Dr. Macias tomorrow morning for re-evaluation. Patient advised to sleep with his head of bed elevated and use warm pack as needed for comfort. Time: 19:45 Vital Signs Vital signs: Vital Signs - 8 hr 02/24/20 18:11 02/24/20 18:12 02/24/20 18:30 Temperature 99.9 F H Pulse Rate 96 H 97 H 91 H Respiratory Rate 17 Blood Pressure 143/91 H Pulse Oximetry 97 97 95 02/24/20 18:40 02/24/20 20:23 Temperature Pulse Rate 88 84 Respiratory Rate Blood Pressure 135/90 125/81 Pulse Oximetry 96 96 <Marco Morris DO - Last Filed: 02/25/20 01:22> Orders Ordered: ED Orders 02/24/20 18:37 C-Reactive Protein Quant Stat Complete Blood Count AUTO DIFF Stat Lactate (Lactic Acid) Stat Procalcitonin Stat 02/24/20 19:00 Blood Culture Stat Discontinued Medications Acetaminophen (Tylenol) 325 mg PO NOW ONE Stop: 02/24/20 19:50 Last Admin: 02/24/20 20:01 Dose: 325 mg Documented by: HELLEN Ketorolac Tromethamine (Toradol) 15 mg IV NOW ONE Stop: 02/24/20 19:49 Last Admin: 02/24/20 20:01 Dose: 15 mg Documented by: HELLEN Morphine Sulfate (Morphine) 4 mg IV NOW ONE Stop: 02/24/20 18:20 Last Admin: 02/24/20 18:34 Dose: 4 mg Documented by: HELLEN Morphine Sulfate (Morphine) 4 mg IV NOW ONE Stop: 02/24/20 19:49 Last Admin: 02/24/20 20:01 Dose: 4 mg Documented by: HELLEN Ondansetron HCl (Zofran) 4 mg IV NOW ONE Stop: 02/24/20 18:44 Last Admin: 02/24/20 18:47 Dose: 4 mg Documented by: HELLEN Ondansetron HCl (Zofran Odt Prepack) 1 bottle MISC SEEINSTR ONE Stop: 02/24/20 19:51 Last Admin: 02/24/20 20:02 Dose: 1 bottle Documented by: HELLEN Oxycodone/Acetaminophen (Percocet 5/325) 1 tab PO NOW ONE Stop: 02/24/20 19:49 Last Admin: 02/24/20 20:01 Dose: 1 tab Documented by: HELLEN Oxycodone/Acetaminophen (Endocet 5/325 Prepack) 1 bottle MISC SEEINSTR ONE Stop: 02/24/20 19:51 Last Admin: 02/24/20 20:02 Dose: 1 bottle Documented by: HELLEN Vital Signs Vital signs: Vital Signs - 8 hr 02/24/20 18:11 02/24/20 18:12 02/24/20 18:30 Temperature 99.9 F H Pulse Rate 96 H 97 H 91 H Respiratory Rate 17 Blood Pressure 143/91 H Pulse Oximetry 97 97 95 02/24/20 18:40 02/24/20 20:23 Temperature Pulse Rate 88 84 Respiratory Rate Blood Pressure 135/90 125/81 Pulse Oximetry 96 96 Medical Decision Making <JAGRUTI Flynn - Last Filed: 02/24/20 23:04> Differential Diagnosis Differential Diagnosis: Otitis externa, sepsis, meningitis, malignant otitis externa Medical Records Medical records reviewed: Yes I reviewed the patient's medical records. Lab Data Lab results reviewed: Yes I reviewed the patient's lab results. Result diagrams: 02/24/20 18:37 Labs: Lab Results 02/24/20 02/24/20 02/24/20 Range/Units 18:37 18:37 18:37 WBC 10.6 (4.5-11.0) X10^3/uL RBC 4.80 (4.5-5.9) X10^6/uL Hgb 15.3 (13.5-17.5) g/dL Hct 44.1 (41-53) % MCV 91.9 (80-100) fL MCH 31.9 (26-34) PG MCHC 34.7 (30-36) % RDW 13.6 (11.6-14.8) % Plt Count 287 (150-400) X10^3/uL Neut % (Auto) 71.0 (50-75) % Lymph % (Auto) 17.2 L (25-40) % Mcdonald % (Auto) 9.0 (3-14) % Eos % (Auto) 2.2 (2-4) % Baso % (Auto) 0.6 (0-2) % Neut # (Auto) 7600 H (1927-5078) /uL Lymph # (Auto) 1800 (7476-4258) /uL Mcdonald # (Auto) 1000 H (0-900) /uL Eos # (Auto) 200 (0-450) /uL Baso # (Auto) 100 (0-100) /uL Lactate 0.7 (0.7-2.1) mmol/L C-Reactive Protein (<1.0) mg/dL Procalcitonin < 0.05 (<0.5) ng/mL 02/24/20 Range/Units 18:37 WBC (4.5-11.0) X10^3/uL RBC (4.5-5.9) X10^6/uL Hgb (13.5-17.5) g/dL Hct (41-53) % MCV (80-100) fL MCH (26-34) PG MCHC (30-36) % RDW (11.6-14.8) % Plt Count (150-400) X10^3/uL Neut % (Auto) (50-75) % Lymph % (Auto) (25-40) % Mcdonald % (Auto) (3-14) % Eos % (Auto) (2-4) % Baso % (Auto) (0-2) % Neut # (Auto) (9216-7092) /uL Lymph # (Auto) (0788-7957) /uL Mcdonald # (Auto) (0-900) /uL Eos # (Auto) (0-450) /uL Baso # (Auto) (0-100) /uL Lactate (0.7-2.1) mmol/L C-Reactive Protein 5.8 H (<1.0) mg/dL Procalcitonin (<0.5) ng/mL MDM Narrative Medical decision making narrative: No significant changes in lab test in WBC today as 10.6 (10.4 on 02/23/20) and mild elevation in neutrophil count 7600 (7100 yesterday). Normal lactate of 0.7 and negative procalcitonin. Elevation in CRP to 5.8 (1.3 [address] CT test was done yesterday showing bilateral mastoid air cells are clear with small amount of fluid in left middle ear cavity and edema of left external auditory canal without bone erosion or destruction. No repeat CT was done. Patient received IV Cipro yesterday and follow-up with oral Cipro 750 mg b.i.d. dose. However, patient started Cipro ear drops later this afternoon due to was not in stock the pharmacy. Ear weeks was not visualized per exam. Temperature was 99.9? in ED with mildly elevated BP. Patient received two doses of Morphine 4mg with Zofran prophylactically for nausea and vomiting. 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 Patient's pain was well managed before leaving ED. Spoke with Dr. Macias with concerns with not improving symptoms after received IV and p.o. antibiotic medication and initial dose of Cipro otic gtt. He recommended the patient to be re-evaluated tomorrow the office. Left ear was medicated with Cipro otic gtt with a wick as Dr. Macias requested if possible. Return precautions were discussed with patient and advised to sleep with bed raised and use warm pack as needed for comfort on affected as Dr. Macias recommended. Patient informed that Dr. macias will contact him tomorrow morning around 9 to confirm the time and location for on evaluation tomorrow. Patient and spouse verbalized understanding in agreement with treatment. <Marco Morris, DO - Last Filed: 02/25/20 01:22> Lab Data Labs: Lab Results 02/24/20 02/24/20 02/24/20 Range/Units 18:37 18:37 18:37 WBC 10.6 (4.5-11.0) X10^3/uL RBC 4.80 (4.5-5.9) X10^6/uL Hgb 15.3 (13.5-17.5) g/dL Hct 44.1 (41-53) % MCV 91.9 (80-100) fL MCH 31.9 (26-34) PG MCHC 34.7 (30-36) % RDW 13.6 (11.6-14.8) % Plt Count 287 (150-400) X10^3/uL Neut % (Auto) 71.0 (50-75) % Lymph % (Auto) 17.2 L (25-40) % Mcdonald % (Auto) 9.0 (3-14) % Eos % (Auto) 2.2 (2-4) % Baso % (Auto) 0.6 (0-2) % Neut # (Auto) 7600 H (6472-1054) /uL Lymph # (Auto) 1800 (8303-5290) /uL Mcdonald # (Auto) 1000 H (0-900) /uL Eos # (Auto) 200 (0-450) /uL Baso # (Auto) 100 (0-100) /uL Lactate 0.7 (0.7-2.1) mmol/L C-Reactive Protein (<1.0) mg/dL Procalcitonin < 0.05 (<0.5) ng/mL 02/24/20 Range/Units 18:37 WBC (4.5-11.0) X10^3/uL RBC (4.5-5.9) X10^6/uL Hgb (13.5-17.5) g/dL Hct (41-53) % MCV (80-100) fL MCH (26-34) PG MCHC (30-36) % RDW (11.6-14.8) % Plt Count (150-400) X10^3/uL Neut % (Auto) (50-75) % Lymph % (Auto) (25-40) % Mcdonald % (Auto) (3-14) % Eos % (Auto) (2-4) % Baso % (Auto) (0-2) % Neut # (Auto) (6778-6882) /uL Lymph # (Auto) (6363-9108) /uL Mcdonald # (Auto) (0-900) /uL Eos # (Auto) (0-450) /uL Baso # (Auto) (0-100) /uL Lactate (0.7-2.1) mmol/L C-Reactive Protein 5.8 H (<1.0) mg/dL Procalcitonin (<0.5) ng/mL Discharge Plan Departure Patient Disposition: Home Clinical Impression: Otitis externa Qualifiers: Otitis externa type: unspecified type Chronicity: acute Laterality: left Qualified Code(s): H60.502 - Unspecified acute noninfective otitis externa, left ear Discharge Date/Time: 02/24/20 20:23 Instructions: DI for Otitis Externa Activity Restrictions/Additional Instructions: You have been diagnosed with [otitis externa. Lab tests today are similar to yesterday except mildly elevated CRP of 5.8 (1.3). You were treated wt pain medication-Morphine, Toaradol, Oxycodone and Zofran]. What to do: *Take your medications as directed. Please continue with current medications. You can take oxycodone 1-2 tabs every 4-6 hours as needed for pain. You can add ibuprofen 400mg up to 4 times a day as needed for pain with food to decrease GI irritation. *Follow up with Dr. Macias tomorrow. He will give you a call to confirm the time and location but plan to be seen around at 10 am. Let them know you were seen in the ED and that we asked you to be seen in follow up. *Return to ED if you have any new, worsening, or concerning symptoms, such as [chest pain, breathing difficulty, worsening pain, fevers/chills, feeling like faint, or any acute concerns]. Prescriptions: New oxycodone-acetaminophen [Percocet] 5-325 mg tablet 1 - 2 tab PO QID PRN (Reason: pain) Qty: 14 RF: 0 ondansetron 4 mg tablet,disintegrating 4 mg PO Q8H PRN (Reason: nausea and vomiting) Qty: 10 RF: 0 No Action sertraline [Zoloft] 100 MG tablet 200 mg PO DAILY Qty: 0 RF: 0 lisinopril 10 MG tablet 10 mg PO DAILY Qty: 0 RF: 0 cholecalciferol (vitamin D3) 1,000 unit capsule 1,000 unit PO DAILY RF: 0 levothyroxine 1 tab PO DAILY RF: 0 hydrocodone-acetaminophen 5-325 mg tablet 1 tab PO Q4-6H PRN (Reason: pain) Qty: 7 RF: 0 ondansetron 4 mg tablet,disintegrating 4 mg PO Q6H PRN (Reason: nausea and vomiting) Qty: 10 RF: 0 ciprofloxacin HCl 750 mg tablet 750 mg PO BID Qty: 10 RF: 0 Ciprodex 0.3-0.1 % drops,suspension 4 drop EAR-LEFT BID Qty: 7.5 RF: 0 Referrals: Calderon Macias MD [Physician] - Mundo Dinero ARNP [Primary Care Provider] - <Marco Morris DO - Last Filed: 02/25/20 01:22> Cosign ED Attending Jeannineature Attestation: I was immediately available in the department for consultation. This documentation has been reviewed and I agree with assessment and plan. Supervised by Marco Morris DO
[2020-02-24 20:23] VITALS: BP 125/81; PULSE 84; O2SAT 96
== END 2020-02-24 20:23 | disposition home or self-care (01) ==
PROVIDERS: Emergency Provider Nurse Practitioner Family; PCP Nurse Practitioner Family
DX: H60.502 Unspecified acute noninfective otitis externa, left ear (principal); R50.9 Fever, unspecified; R11.2 Nausea with vomiting, unspecified
CPT/HCPCS: 36415; 83605; 84145; 85025; 86140; 87040; 96374; 96375; 96376; 99284; J1885; J2270; J2405

== ENCOUNTER 2021-11-25 10:32 | Emergency (ER) | payer MEDICARE, OTHER, SELFPAY ==
[2021-11-25 10:51] VITALS: BP 160/98; PULSE 85; RESP 17; TEMP 36.6; O2SAT 98; BMI 37.3
--- NOTE | 2021-11-25 13:19 | DI.CT.S_ITS ---
PROCEDURE: CT LUMBAR SPINE WO CON INDICATIONS: lumbar midline TTP TECHNIQUE: Noncontrast 3 mm thick sections acquired from the T12 level to the sacrum. Sagittal and coronal reformats were constructed. For radiation dose reduction, the following was used: automated exposure control. COMPARISON: [facility], CR, XR LUMBAR SPINE 2-3V, 02/03/2019, 15:51. FINDINGS: Image quality: Excellent. Bones: There is normal bony alignment. No acute vertebral body compression fractures. No suspicious lytic or blastic bony lesions. No pars defects. T12-L1: Diffuse posterior disc bulge with minimal loss of disc height. The central canal is minimally narrowed. No foraminal stenosis. L1-L2: Diffuse posterior disc bulge with preserved disc height. The central canal is minimally narrowed. No foraminal stenosis. L2-L3: Diffuse posterior disc bulge with preserved disc height. The central canal is minimally narrowed. No foraminal stenosis. L3-L4: Diffuse posterior disc bulge with moderate loss of disc height. The central canal is [id number]-[id number] narrowed. No foraminal stenosis. L4-L5: Diffuse posterior disc bulge with mild loss of disc height. The central canal is [id number]-[id number] narrowed. No foraminal stenosis. L5-S1: Discectomy and anterior and posterior spinal fusion. No central canal or foraminal stenosis. Soft tissues: No retroperitoneal masses or hematomas. Visualized aorta is normal in caliber. IMPRESSION: 1. Discectomy and spinal fusion at L5-S1. 2. Mild degenerative disc disease. 3. [id number] central canal stenosis at L3-L4 and L4-L5. 4. No foraminal stenosis. 5. If clinical symptoms persist or clinical suspicion for nerve root impingement is high, MRI is suggested for follow-up evaluation. Dictated by: Carlos Navas M.D. on 11/25/2021 at 14:06 Approved by: Carlos Navas M.D. on 11/25/2021 at 15:09
[2021-11-25] MEDS: CYCLOBENZAPRINE 10 MG TABLET PO (13:43)
[2021-11-25] MEDS: KETOROLAC 30 MG/ML VIAL 15 MG IM (13:43)
[2021-11-25 15:26] VITALS: BP 148/92; PULSE 82; RESP 16; O2SAT 99
--- NOTE | 2021-12-09 13:18 | ED.BACK ---
HPI - Back Pain/Injury <Davidson Mcrae PA-C - Last Filed: 12/09/21 14:10> General Chief Complaint: Back Pain/Injury Stated Complaint: Back spasms, pain. hx of spinal fusion- hardware Time Seen by Provider: 11/25/21 12:17 Source: patient History of Present Illness HPI Narrative: 51-year-old male with past medical history hypertension, status post distant spinal fusion presents to the ED with 2 days of lower back pain. 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 Patient endorses that the pain is similar to prior episodes of lower back pain when he strains his back. Patient denies pain going down his legs. Patient denies saddle paresthesias, urinary hesitancy, urinary urgency, numbness, tingling, weakness. Related Data Home Medications Medication Instructions Recorded Confirmed lisinopril 10 mg tablet 10 mg PO DAILY ##0 02/10/16 11/25/21 sertraline 100 mg tablet (Zoloft) 200 mg PO DAILY ##0 02/10/16 02/14/19 cholecalciferol (vitamin D3) 25 1,000 unit PO DAILY 02/03/19 02/24/20 mcg (1,000 unit) capsule levothyroxine 1 tab PO DAILY 02/03/19 11/25/21 duloxetine 60 mg capsule,delayed 60 mg PO 11/25/21 release levothyroxine 11/25/21 prazosin 1 mg capsule 1 mg PO BEDTIME 11/25/21 11/25/21 Previous Rx's Medication Instructions Recorded hydrocodone 5 mg-acetaminophen 325 1 tab PO Q4-6H PRN pain #7 tabs 02/14/19 mg tablet ondansetron 4 mg disintegrating 4 mg PO Q6H PRN nausea and 02/14/19 tablet vomiting #10 tabs ciprofloxacin 0.3 %-dexamethasone 4 drop EAR-LEFT BID #7.5 mL 02/23/20 0.1 % ear drops,suspension (Ciprodex) ciprofloxacin HCl 750 mg tablet 750 mg PO BID #10 tabs 02/23/20 ondansetron 4 mg disintegrating 4 mg PO Q8H PRN nausea and 02/24/20 tablet vomiting #10 tabs oxycodone-acetaminophen 5 mg-325 1 - 2 tab PO QID PRN pain #14 tabs 02/23/20 mg tablet (Percocet) cyclobenzaprine 10 mg tablet 10 mg PO TID PRN muscle spasm #15 11/25/21 tabs Allergies Allergy/AdvReac Type Severity Reaction Status Date / Time No Known Drug Allergies Allergy Verified 11/25/21 10:53 Review of Systems <Davidson Mcrae PA-C - Last Filed: 12/09/21 14:10> Review of Systems ROS Unobtainable: All systems reviewed & are unremarkable except as noted in HPI and below Constitutional Constitutional: Denies chills, Denies fatigue, Denies fever(s), Denies frequent falls, Denies lethargy and Denies weakness Eyes Eyes: Denies change in vision, Denies eye discharge, Denies irritation and Denies loss of vision ENT Ears, Nose, Mouth, and Throat: Denies change in voice, Denies dizziness, Denies neck pain, Denies sore throat and Denies throat swelling Cardiovascular Cardiovascular: Denies chest pain, Denies irregular heart rhythm, Denies lightheadedness, Denies palpitations, Denies dyspnea, Denies dyspnea on exertion and Denies orthopnea Respiratory Respiratory: Denies cough, Denies dyspnea, Denies dyspnea on exertion and Denies wheezing Gastrointestinal Gastrointestinal: Denies abdominal pain, Denies change in bowel habits, Denies diarrhea, Denies nausea and Denies vomiting Genitourinary Genitourinary: Denies hematuria, Denies flank pain, Denies urinary incontinence and Denies urinary urgency Musculoskeletal Musculoskeletal: Reports back pain, Denies muscle weakness, Denies neck pain, Denies numbness, Denies radiating pain into limb and Denies tingling Integumentary/Breasts Skin/Breast: Denies pruritus, Denies erythema, Denies rash and Denies wounds Neurologic Neurologic: Denies behavioral changes, Denies confusion, Denies dizziness, Denies frequent falls, Denies loss of vision, Denies numbness, Denies tingling and Denies weakness Psychiatric Psychiatric: Denies anxiety, Denies behavioral changes, Denies confusion, Denies depression, Denies homicidal ideation and Denies suicidal ideation Endocrine Endocrine: Denies fatigue, Denies flushing and Denies palpitations Hematologic/Lymphatic Hematologic/Lymphatic: Denies easy bruising Allergic/Immunologic Allergic/Immunologic: Denies urticaria, Denies throat swelling and Denies wheezing Patient History <Davidson Mcrae PA-C - Last Filed: 12/09/21 14:10> Medical History (Updated 12/10/21 @ 00:00 by ) Depression Hypertension Hypothyroidism Surgical History Previous back surgery Social History Smoking Status: Never smoker Smoking Status: Never smoker alcohol intake frequency: a few times a month Substance Use Type: does not use Exam <Davidson Mcrae PA-C - Last Filed: 12/09/21 14:10> Narrative Exam Narrative: Const General:?cooperative, healthy appearing and comfortable HENMT Head:?normal to inspection Ears:?hearing grossly normal bilaterally; tympani intact bilaterally Nose:?external nose normal Face and sinus:?normal facial exam and sinuses nontender Mouth:?oral mucosae normal Throat:?posterior oropharynx normal Eyes General:?appearance normal, both eyes and all related structures Neck Neck:?normal visual inspection and no lymphadenopathy noted Resp Effort & Inspection:?normal respiratory effort Auscultation:?clear to auscultation bilaterally Cardio Rate:?regular rate Rhythm:?regular rhythm Musculoskeletal Full range of movement. Strength and sensation intact. Neurovascularly intact. No midline tenderness to palpation. No paraspinal tenderness to palpation. Neuro General:?patient alert, patient awake and patient oriented x3 Initial Vital Signs Initial Vital Signs: Vital Signs Temperature 98 F 11/25/21 10:51 Pulse Rate 85 11/25/21 10:51 Respiratory Rate 17 11/25/21 10:51 Blood Pressure 160/98 H 11/25/21 10:51 Pulse Oximetry 98 11/25/21 10:51 Oxygen Delivery Method 11/25/21 10:51 <Barbara Champion DO - Last Filed: 12/30/21 13:41> Initial Vital Signs Initial Vital Signs: Vital Signs Temperature 98 F 11/25/21 10:51 Pulse Rate 85 11/25/21 10:51 Respiratory Rate 17 11/25/21 10:51 Blood Pressure 160/98 H 11/25/21 10:51 Pulse Oximetry 98 11/25/21 10:51 Oxygen Delivery Method 11/25/21 10:51 Course <Davidson Mcrae PA-C - Last Filed: 12/09/21 14:10> Orders Ordered: Discontinued Medications Cyclobenzaprine HCl (Cyclobenzaprine 10 Mg Tablet) 10 mg PO NOW ONE Stop: 11/25/21 13:20 Last Admin: 11/25/21 13:43 Dose: 10 mg Documented By: SRIRAM Ketorolac Tromethamine (Ketorolac 30 Mg/Ml Vial) 15 mg IM NOW ONE Stop: 11/25/21 13:20 Last Admin: 11/25/21 13:43 Dose: 15 mg Documented By: RLS <Barbara Champion DO - Last Filed: 12/30/21 13:41> Orders Ordered: Discontinued Medications Cyclobenzaprine HCl (Cyclobenzaprine 10 Mg Tablet) 10 mg PO NOW ONE Stop: 11/25/21 13:20 Last Admin: 11/25/21 13:43 Dose: 10 mg Documented By: SRIRAM Ketorolac Tromethamine (Ketorolac 30 Mg/Ml Vial) 15 mg IM NOW ONE Stop: 11/25/21 13:20 Last Admin: 11/25/21 13:43 Dose: 15 mg Documented By: SRIRAM MDM - Back Pain/Injury <Davidson Mcrae PA-C - Last Filed: 12/09/21 14:10> Imaging Data Lumbar spine CT: Radiologist's Impression: PROCEDURE:? CT LUMBAR SPINE WO CON ? INDICATIONS:? lumbar midline TTP ? TECHNIQUE:? Noncontrast 3 mm thick sections acquired from the T12 level to the sacrum.? Sagittal and coronal reformats were constructed.? For radiation dose reduction, the following was used:? automated exposure control.? ? COMPARISON:? [facility], CR, XR LUMBAR SPINE 2-3V, 02/03/2019, 15:51. ? FINDINGS:? Image quality:? Excellent.? ? Bones:? There is normal bony alignment.? No acute vertebral body compression fractures.? No suspicious lytic or blastic bony lesions.? No pars defects.? ? T12-L1:? Diffuse posterior disc bulge with minimal loss of disc height.? The central canal is minimally narrowed.? No foraminal stenosis. ? L1-L2:? Diffuse posterior disc bulge with preserved disc height.? The central canal is minimally narrowed.? No foraminal stenosis. ? L2-L3:? Diffuse posterior disc bulge with preserved disc height.? The central canal is minimally narrowed.? No foraminal stenosis. ? L3-L4:? Diffuse posterior disc bulge with moderate loss of disc height.? The central canal is cyrz-la-tcsjlezhgm narrowed.? No foraminal stenosis. ? L4-L5:? Diffuse posterior disc bulge with mild loss of disc height.? The central canal is xahs-gq-dsgibspnhs narrowed.? No foraminal stenosis. ? L5-S1:? Discectomy and anterior and posterior spinal fusion.? No central canal or foraminal stenosis. ? Soft tissues:? No retroperitoneal masses or hematomas.? Visualized aorta is normal in caliber.? ? ? IMPRESSION:? ? 1. Discectomy and spinal fusion at L5-S1. 2. Mild degenerative disc disease. 3. Jbvu-jk-nwlyhkse central canal stenosis at L3-L4 and L4-L5. 4. No? foraminal stenosis. 5.? If clinical symptoms persist or clinical suspicion for nerve root impingement is high, MRI is suggested for follow-up evaluation. ? ? ? Dictated by: Carlos Navas M.D. on 11/25/2021 at 14:06 ? ? Approved by: Carlos Navas M.D. on 11/25/2021 at 15:09 ? [facility] Narrative Medical decision making narrative: 51-year-old male with past medical history hypertension, status post distant spinal fusion presents to the ED with 2 days of lower back pain. History and physical exam is reassuring, unlikely spinal emergency. Patient's symptoms likely due to a musculoskeletal sprain/strain of the back versus fracture/dislocation. Will obtain lumbar spine CT. Will treat with Flexeril and ketorolac. Lumbar spine CT without acute findings. Patient's symptoms greatly improved with the medications. Patient prescribed Flexeril. ED precautions discussed with patient. Patient verbalized understanding. Discharge Plan Departure Patient Disposition: Home Clinical Impression: Lower back pain Instructions: DI for Back Pain With Sciatica Activity Restrictions/Additional Instructions: You were evaluated for lower back pain in the ED today. Your physical exam was reassuring. Your CT lumbar spine did not show any acute findings. Your symptoms were significantly improved with Flexeril. You may continue to take the muscle relaxant for the next few days, however please be aware that it will make you sleepy, so please to not operate any machinery or drive when taking the medicine. Return to the ED if you experience worsening back pain, numbness, tingling, weakness, urinary incontinence, difficulty urinating. Prescriptions: New cyclobenzaprine 10 mg tablet 10 mg PO TID PRN (Reason: muscle spasm) Qty: 15 0RF No Action sertraline [Zoloft] 100 MG tablet 200 mg PO DAILY Qty: 0 lisinopril 10 MG tablet 10 mg PO DAILY Qty: 0 cholecalciferol (vitamin D3) 1,000 unit capsule 1,000 unit PO DAILY levothyroxine 1 tab PO DAILY Label Comments: Patient and spouse unsure of strength. State upped to possibly 200mcg. Has been changed. 02/03/19 hydrocodone-acetaminophen 5-325 mg tablet 1 tab PO Q4-6H PRN (Reason: pain) Qty: 7 0RF ondansetron 4 mg tablet,disintegrating 4 mg PO Q6H PRN (Reason: nausea and vomiting) Qty: 10 0RF ciprofloxacin HCl 750 mg tablet 750 mg PO BID Qty: 10 0RF Ciprodex 0.3-0.1 % drops,suspension 4 drop EAR-LEFT BID Qty: 7.5 0RF oxycodone-acetaminophen [Percocet] 5-325 mg tablet 1 - 2 tab PO QID PRN (Reason: pain) Qty: 14 0RF ondansetron 4 mg tablet,disintegrating 4 mg PO Q8H PRN (Reason: nausea and vomiting) Qty: 10 0RF prazosin 1 mg capsule 1 mg PO BEDTIME duloxetine 60 mg capsule,delayed release(DR/EC) 60 mg PO levothyroxine Referrals: Mundo Dinero ARNP [Primary Care Provider] - Visit Report Forms: Patient Portal/API <Barbara Champion DO - Last Filed: 12/30/21 13:41> Cosign ED Attending Jeannineature Attestation: I was immediately available in the department for consultation. Documentation has been reviewed.
== END 2021-11-25 15:29 | disposition home or self-care (01) ==
PROVIDERS: Emergency Provider Student in an Organized Health Care Education/Training Program; PCP Nurse Practitioner Family
DX: M54.50 Low back pain, unspecified (principal)
CPT/HCPCS: 72131; 96372; 99283; 99284; J1885

== ENCOUNTER 2022-03-27 21:38 | Emergency (ER) | payer MEDICARE, OTHER, SELFPAY ==
[2022-03-27 21:40] VITALS: BP 156/88; PULSE 87; RESP 20; TEMP 36.2; O2SAT 98; BMI 34.4
--- NOTE | 2022-03-28 00:05 | ED_ITS ---
HPI - Extremity Injury (Upper) General Chief Complaint: Extremity Injury, Upper Stated Complaint: rt arm irritation, turning purple Time Seen by Provider: 03/27/22 22:03 Source: patient Mode of arrival: Ambulatory History of Present Illness HPI narrative: 51M nonsmoker with history of hypertension and psoriasis presents with his in the chief complaint of pain, redness and minimal swelling of his right forearm. He has psoriasis and was recently in the [place] and developed cracking in his skin with the development of surrounding redness and drainage of yellow serous fluid over the past few days. He denies recent trauma or injury. He denies fever or chills. He is not dizzy nor weak or lightheaded. He has no chest pain or shortness of breath and denies any nausea, vomiting or diarrhea. Related Data Home Medications Medication Instructions Recorded Confirmed lisinopril 10 mg tablet 10 mg PO DAILY ##0 02/10/16 11/25/21 sertraline 100 mg tablet (Zoloft) 200 mg PO DAILY ##0 02/10/16 02/14/19 cholecalciferol (vitamin D3) 25 1,000 unit PO DAILY 02/03/19 02/24/20 mcg (1,000 unit) capsule levothyroxine 1 tab PO DAILY 02/03/19 11/25/21 duloxetine 60 mg capsule,delayed 60 mg PO 11/25/21 release levothyroxine 11/25/21 prazosin 1 mg capsule 1 mg PO BEDTIME 11/25/21 11/25/21 Previous Rx's Medication Instructions Recorded hydrocodone 5 mg-acetaminophen 325 1 tab PO Q4-6H PRN pain #7 tabs 02/14/19 mg tablet ondansetron 4 mg disintegrating 4 mg PO Q6H PRN nausea and 02/14/19 tablet vomiting #10 tabs ciprofloxacin 0.3 %-dexamethasone 4 drop EAR-LEFT BID #7.5 mL 02/23/20 0.1 % ear drops,suspension (Ciprodex) ciprofloxacin HCl 750 mg tablet 750 mg PO BID #10 tabs 02/23/20 ondansetron 4 mg disintegrating 4 mg PO Q8H PRN nausea and 02/24/20 tablet vomiting #10 tabs oxycodone-acetaminophen 5 mg-325 1 - 2 tab PO QID PRN pain #14 tabs 02/24/20 mg tablet (Percocet) cyclobenzaprine 10 mg tablet 10 mg PO TID PRN muscle spasm #15 11/25/21 tabs doxycycline hyclate 100 mg tablet 100 mg PO BID #20 tabs 03/28/22 Allergies Allergy/AdvReac Type Severity Reaction Status Date / Time No Known Drug Allergies Allergy Verified 03/27/22 21:53 Review of Systems Review of Systems Narrative: GENERAL: Denies chills, fatigue, malaise, fever, sweats. HEENT: Denies sinus pain, ear pain, sore throat, difficulty swallowing, dizzi ness. RESPIRATORY: Denies dyspnea, cough, wheezing, hemoptysis, sputum. CARDIOVASCULAR: Denies chest pain, palpitations, orthopnea, edema, GASTROINTESTINAL: Denies nausea, vomiting, abdominal pain, diarrhea, constipation, melena. : Denies dysuria, frequency, incontinence, hematuria, urinary retention. MUSCULOSKELETAL: denies weakness, joint pain, or bony pain SKIN: see HPI NEUROLOGIC: Denies weakness, headache, numbness, change in speech, confusion, seizures, incoordination. PSYCHIATRIC: No concerning psychosocial issues. 12 point review of systems is negative except for those stated above Patient History Medical History Depression Hypertension Hypothyroidism Surgical History Previous back surgery Social History Smoking Status: Never smoker Smoking Status: Never smoker alcohol intake frequency: a few times a month Substance Use Type: does not use Exam Narrative Exam Narrative: GENERAL: [51] year old patient appears stated age. Well-developed patient, in mild distress. HEAD: Atraumatic. Normocephalic. EYES: Pupils equal round and reactive. Extraocular motions intact. No scleral icterus. No injection or drainage. ENT: Nose without bleeding, purulent drainage. Throat without erythema, tonsillar hypertrophy or exudate. Airway patent. NECK: Trachea midline. Non tender CARDIOVASCULAR: Regular rate and rhythm without murmurs, gallops, or rubs. RESPIRATORY: Clear to auscultation. Breath sounds equal bilaterally. No wheezes, rales, or rhonchi. GASTROINTESTINAL: Abdomen soft, non-tender, nondistended. EXTREMITIES: Right dorsal forearm with dried, scaling skin that is cracking and surrounding erythema, there is no underlying induration or fluctuance, no lymphangitis spread, evidence of dried crusting drainage but no obvious purulence. Culture obtained BACK: Nontender without deformity or crepitance. No flank tenderness. NEURO: AOx3. SKIN: No rash or erythema of visible areas Initial Vital Signs Initial Vital Signs: Vital Signs Temperature 97.2 F L 03/27/22 21:40 Pulse Rate 87 03/27/22 21:40 Respiratory Rate 20 03/27/22 21:40 Blood Pressure 156/88 H 03/27/22 21:40 Pulse Oximetry 98 03/27/22 21:40 Oxygen Delivery Method 03/27/22 21:40 Course Orders Ordered: ED Orders 03/28/22 00:11 Wound Culture and Gram Stain Stat Discontinued Medications Doxycycline Hyclate (Doxycycline Hyclate 100 Mg Tablet) 100 mg PO NOW ONE Stop: 03/28/22 00:12 Vital Signs Vital signs: Vital Signs - 8 hr 03/27/22 21:40 Temperature 97.2 F L Pulse Rate 87 Respiratory Rate 20 Blood Pressure 156/88 H Pulse Oximetry 98 Oxygen Delivery Method Room Air MDM - Extremity Injury (Upper) MDM Narrative Medical decision making narrative: Patient with redness, pain and minimal swelling to right upper forearm in the absence of injury. He has no systemic findings and though DVT was considered as thought unlikely based on this history and physical. There is cracking, dry skin with drainage, this is certainly most consistent with a superinfection. Patient has no systemic findings and shows no signs of sepsis. We discussed the utility of labs and further workup but sure the opinion that it is not indicated at this time. First dose of antibiotic given in remainder sent to his pharmacy of choice. Patient given return precautions and questions answered to his apparent satisfaction Discharge Plan Departure Patient Disposition: Home Clinical Impression: Cellulitis of arm, right Instructions: DI for Cellulitis -- Adult Activity Restrictions/Additional Instructions: *You have been diagnosed with [right forearm cellulitis] *What to do: *Please continue to take your regular medications as directed. [ x] New medication prescriptions sent to your pharmacy: [[facility]] [ ] New medication written as a paper prescription [ ] No new medications given *Please follow up with your primary care provider in 2-3 days, call for an appointment. Let them know you were seen in the Emergency Department and that we ask that you be seen in follow up. We will electronically transmit a record of today's note if your PCP is in our system *If you do not have a primary care provider please contact the [facility] Resource line at [phone]. They will ask some questions about your medical history and help get you set up with a doctor in the community. *Return to Emergency Department if you should have any new, worsening or concerning symptoms, such as [fever greater than 101 F, shaking chills, worsening pain, persistent vomiting or other bothersome symptoms] Prescriptions: New doxycycline hyclate 100 mg tablet 100 mg PO BID Qty: 20 0RF No Action sertraline [Zoloft] 100 MG tablet 200 mg PO DAILY Qty: 0 lisinopril 10 MG tablet 10 mg PO DAILY Qty: 0 cholecalciferol (vitamin D3) 1,000 unit capsule 1,000 unit PO DAILY levothyroxine 1 tab PO DAILY Label Comments: Patient and spouse unsure of strength. State upped to possibly 200mcg. Has been changed. 02/03/19 hydrocodone-acetaminophen 5-325 mg tablet 1 tab PO Q4-6H PRN (Reason: pain) Qty: 7 0RF ondansetron 4 mg tablet,disintegrating 4 mg PO Q6H PRN (Reason: nausea and vomiting) Qty: 10 0RF ciprofloxacin HCl 750 mg tablet 750 mg PO BID Qty: 10 0RF Ciprodex 0.3-0.1 % drops,suspension 4 drop EAR-LEFT BID Qty: 7.5 0RF oxycodone-acetaminophen [Percocet] 5-325 mg tablet 1 - 2 tab PO QID PRN (Reason: pain) Qty: 14 0RF ondansetron 4 mg tablet,disintegrating 4 mg PO Q8H PRN (Reason: nausea and vomiting) Qty: 10 0RF prazosin 1 mg capsule 1 mg PO BEDTIME duloxetine 60 mg capsule,delayed release(DR/EC) 60 mg PO levothyroxine cyclobenzaprine 10 mg tablet 10 mg PO TID PRN (Reason: muscle spasm) Qty: 15 0RF Referrals: Mundo Dinero ARNP [Primary Care Provider] -
[2022-03-28] MEDS: DOXYCYCLINE HYCLATE 100 MG TABLET PO (00:22)
== END 2022-03-28 00:25 | disposition home or self-care (01) ==
PROVIDERS: Emergency Provider Emergency Medicine; PCP Nurse Practitioner Family
DX: L03.113 Cellulitis of right upper limb (principal)
CPT/HCPCS: 87070; 87077; 87147; 87186; 87205; 99283

== ENCOUNTER 2022-06-25 18:30 | Emergency (ER) | payer MEDICARE, OTHER, SELFPAY ==
[2022-06-25 19:16] VITALS: BP 146/94; PULSE 84; RESP 20; TEMP 36.7; O2SAT 89; BMI 34.2
[2022-06-25 21:13] LABS: Add Manual Diff / Slide Review NO; Basophils Absolute Auto 100 /uL (0-100); Basophils Percent Auto 1.2 % (0-2); Eosinophils Absolute Auto 500 /uL (0-450); Hematocrit 45.7 % (41-53); Hemoglobin 15.6 g/dL (13.5-17.5); Lymphocytes Absolute Auto 1700 /uL (1100-4500); Lymphocytes Percent Auto 24.9 % (25-40); Mean Corpuscular HGB Conc 34.2 % (30-36); Mean Corpuscular Hemoglobin 32.2 PG (26-34); Mean Corpuscular Volume 94.1 fL (80-100); Monocytes Absolute Auto 700 /uL (0-900); Monocytes Percent Auto 10.4 % (3-14); Neutrophils Absolute Auto 4000 /uL (1500-7000); Neutrophils Percent Auto 56.5 % (50-75); Platelet Count 292 X10^3/uL (150-400); Red Blood Cell Count 4.86 X10^6/uL (4.5-5.9); Red Cell Distribution Width 13.8 % (11.6-14.8)
[2022-06-25 21:17] LABS: Alanine Aminotransferase 73 IU/L (<50); Albumin 4.6 g/dL (3.5-5.0); Albumin Globulin Ratio 1.2 (1.0-2.8); Alkaline Phosphatase 79 U/L (38-126); Aspartate Aminotransferase 67 IU/L (17-59); BUN Creatinine Ratio 12.1 (6-22); Bilirubin Total 1.4 mg/dL (0.2-1.3); Blood Urea Nitrogen 15 mg/dL (9-20); Calcium 9.3 mg/dL (8.4-10.2); Carbon Dioxide 24 mmol/L (22-32); Chloride 104 mmol/L (98-107); Creatine Kinase 70 U/L (55-170); Estimated Glomerular Filt Rate > 60 mL/min (>60); Globulin 3.8 g/dL (1.7-4.1); Glucose 97 mg/dL (70-100); HEMOLYSIS 21 (0-50); Sodium 139 mmol/L (137-145); Total Protein 8.4 g/dL (6.3-8.2)
[2022-06-25 21:28] LABS: Troponin I < 0.012 ng/mL (0.01-0.034)
[2022-06-25 21:31] LABS: Lactate (Lactic Acid) 0.9 mmol/L (0.7-2.1)
[2022-06-25 21:33] LABS: Procalcitonin 0.06 ng/mL (<0.5)
[2022-06-25 22:45] VITALS: BP 123/87; PULSE 83; O2SAT 99
[2022-06-25 23:00] VITALS: BP 131/90; PULSE 86
--- NOTE | 2022-06-25 23:19 | ED_ITS ---
HPI - Wound/Laceration General Chief Complaint: Wound/Laceration Stated Complaint: Surgery 1 mo ago, Infection Time Seen by Provider: 06/25/22 20:57 Source: patient Mode of arrival: Ambulatory Limitations: no limitations History of Present Illness HPI narrative: Patient is a 51-year-old male who underwent a right carpal tunnel surgery approximately 1 month ago. It was 2 months after that when he had the stitches removed. He comes the emergency department today for concerns of infection over the surgical wound. He was able to express a small amount of material from the wound. He states the area around the areas more red compared to the left side. He can flex and extend his wrist. Has not tried anything for the symptoms prior to arrival Related Data Home Medications Medication Instructions Recorded Confirmed lisinopril 10 mg tablet 10 mg PO DAILY ##0 02/10/16 11/25/21 sertraline 100 mg tablet (Zoloft) 200 mg PO DAILY ##0 02/10/16 02/14/19 cholecalciferol (vitamin D3) 25 1,000 unit PO DAILY 02/03/19 02/24/20 mcg (1,000 unit) capsule levothyroxine 1 tab PO DAILY 02/03/19 11/25/21 duloxetine 60 mg capsule,delayed 60 mg PO 11/25/21 release levothyroxine 11/25/21 prazosin 1 mg capsule 1 mg PO BEDTIME 11/25/21 11/25/21 Previous Rx's Medication Instructions Recorded hydrocodone 5 mg-acetaminophen 325 1 tab PO Q4-6H PRN pain #7 tabs 02/14/19 mg tablet ondansetron 4 mg disintegrating 4 mg PO Q6H PRN nausea and 02/14/19 tablet vomiting #10 tabs ciprofloxacin 0.3 %-dexamethasone 4 drop EAR-LEFT BID #7.5 mL 02/23/20 0.1 % ear drops,suspension (Ciprodex) ciprofloxacin HCl 750 mg tablet 750 mg PO BID #10 tabs 02/23/20 ondansetron 4 mg disintegrating 4 mg PO Q8H PRN nausea and 02/24/20 tablet vomiting #10 tabs oxycodone-acetaminophen 5 mg-325 1 - 2 tab PO QID PRN pain #14 tabs 02/24/20 mg tablet (Percocet) cyclobenzaprine 10 mg tablet 10 mg PO TID PRN muscle spasm #15 11/25/21 tabs doxycycline hyclate 100 mg tablet 100 mg PO BID #20 tabs 03/28/22 cephalexin 500 mg capsule 500 mg PO QID 5 days #20 caps 06/25/22 Allergies Allergy/AdvReac Type Severity Reaction Status Date / Time No Known Drug Allergies Allergy Verified 03/27/22 21:53 Review of Systems Constitutional Constitutional: Reports system reviewed and no additional complaints, except as documented Musculoskeletal Musculoskeletal: Reports system reviewed and no additional complaints, except as documented Integumentary/Breasts Skin/Breast: Reports system reviewed and no additional complaints, except as documented Neurologic Neurologic: Reports system reviewed and no additional complaints, except as d ocumented Patient History Medical History Depression Hypertension Hypothyroidism Surgical History Previous back surgery Social History Smoking Status: Never smoker Smoking Status: Never smoker alcohol intake frequency: a few times a month Substance Use Type: does not use Exam Initial Vital Signs Initial Vital Signs: Vital Signs Temperature 98.1 F 06/25/22 19:16 Pulse Rate 84 06/25/22 19:16 Respiratory Rate 20 06/25/22 19:16 Blood Pressure 146/94 H 06/25/22 19:16 Pulse Oximetry 89 L 06/25/22 19:16 Oxygen Delivery Method 06/25/22 19:16 Resp Effort & Inspection: normal respiratory effort Cardio Pulses: radial pulses present on the right Skin Other: On the volar aspect of the right wrist there is a scab over the area. Some minimal surrounding erythema. Not able to express any purulent material. Neuro General: patient alert and patient awake Sensory Exam: no sensory deficits noted Extrem Other: Patient is able to flex and extend the right wrist without discomfort. Course Orders Ordered: ED Orders 06/25/22 20:42 Complete Blood Count AUTO DIFF Stat Comprehensive Metabolic Panel Stat Lactate (Lactic Acid) Stat Procalcitonin Stat Troponin & CK Cardiac Panel Stat 06/25/22 23:03 Wound Culture and Gram Stain Stat Discontinued Medications Bacitracin (Bacitracin Oint 0.9 Gm Pckt) 1 applic TOP NOW ONE Stop: 06/25/22 20:59 Last Admin: 06/25/22 23:29 Dose: Not Given Documented By: RB Cephalexin HCl (Cephalexin 250 Mg Capsule) 500 mg PO NOW ONE Stop: 06/25/22 23:21 Last Admin: 06/25/22 23:36 Dose: 500 mg Documented By: WILFREDO Vital Signs Vital signs: Vital Signs - 8 hr 06/25/22 23:00 06/25/22 22:45 Pulse Rate 86 83 Blood Pressure 131/90 123/87 Pulse Oximetry 99 MDM - Wound/Laceration Lab Data Attestation: I reviewed the patient's lab results. Result diagrams: 06/25/22 20:42 06/25/22 20:42 Labs: Lab Results 06/25/22 06/25/22 06/25/22 Range/Units 20:42 20:42 20:42 WBC 7.0 (4.5-11.0) X10^3/uL RBC 4.86 (4.5-5.9) X10^6/uL Hgb 15.6 (13.5-17.5) g/dL Hct 45.7 (41-53) % MCV 94.1 (80-100) fL MCH 32.2 (26-34) PG MCHC 34.2 (30-36) % RDW 13.8 (11.6-14.8) % Plt Count 292 (150-400) X10^3/uL Neut % (Auto) 56.5 (50-75) % Lymph % (Auto) 24.9 L (25-40) % Hanson % (Auto) 10.4 (3-14) % Eos % (Auto) 7.0 H (2-4) % Baso % (Auto) 1.2 (0-2) % Neut # (Auto) 4000 (1308-5225) /uL Lymph # (Auto) 1700 (3533-2439) /uL Hanson # (Auto) 700 (0-900) /uL Eos # (Auto) 500 H (0-450) /uL Baso # (Auto) 100 (0-100) /uL Sodium 139 (137-145) mmol/L Potassium 4.0 (3.4-5.1) mmol/L Chloride 104 (98-107) mmol/L Carbon Dioxide 24 (22-32) mmol/L BUN 15 (9-20) mg/dL Creatinine 1.24 (0.66-1.25) mg/dL Estimated GFR > 60 (>60) mL/min BUN/Creatinine Ratio 12.1 (6-22) Glucose 97 (70-100) mg/dL Lactate 0.9 (0.7-2.1) mmol/L Calcium 9.3 (8.4-10.2) mg/dL Total Bilirubin 1.4 H (0.2-1.3) mg/dL AST 67 H (17-59) IU/L ALT 73 H (<50) IU/L Alkaline Phosphatase 79 (38-126) U/L Total Creatine Kinase 70 (55-170) U/L CK-MB (CK-2) TNP CK-MB (CK-2) Rel Index TNP Troponin I < 0.012 (0.01-0.034) ng/mL Total Protein 8.4 H (6.3-8.2) g/dL Albumin 4.6 (3.5-5.0) g/dL Globulin 3.8 (1.7-4.1) g/dL Albumin/Globulin Ratio 1.2 (1.0-2.8) Procalcitonin 0.06 (<0.5) ng/mL MDM Narrative Medical decision making narrative: There is a small amount of redness around the incision site that is consistent with his stated surgical history. Was unable to express any material. A culture was obtained although I am not sure it will give much results as there was really no material to culture. Given his surgical history and the small amount of redness the fact that he did express some material from the area will start on antibiotics. He was given a dose here in the ER and a prescription was sent to the pharmacy of his choice. He was given return precautions and follow- up instructions. He expressed understanding and agreement. Discharge Plan Departure Patient Disposition: Home Clinical Impression: Postprocedural wound infection Activity Restrictions/Additional Instructions: Take the antibiotics as directed. They were sent to [facility] in [place]. Follow all of the postoperative instructions given to you by the surgeon. Return to the emergency department for any new symptoms. Prescriptions: New cephalexin 500 mg capsule 500 mg PO QID 5 Days Qty: 20 0RF No Action sertraline [Zoloft] 100 MG tablet 200 mg PO DAILY Qty: 0 lisinopril 10 MG tablet 10 mg PO DAILY Qty: 0 cholecalciferol (vitamin D3) 1,000 unit capsule 1,000 unit PO DAILY levothyroxine 1 tab PO DAILY Label Comments: Patient and spouse unsure of strength. State upped to possibly 200mcg. Has been changed. 02/03/19 hydrocodone-acetaminophen 5-325 mg tablet 1 tab PO Q4-6H PRN (Reason: pain) Qty: 7 0RF ondansetron 4 mg tablet,disintegrating 4 mg PO Q6H PRN (Reason: nausea and vomiting) Qty: 10 0RF ciprofloxacin HCl 750 mg tablet 750 mg PO BID Qty: 10 0RF Ciprodex 0.3-0.1 % drops,suspension 4 drop EAR-LEFT BID Qty: 7.5 0RF oxycodone-acetaminophen [Percocet] 5-325 mg tablet 1 - 2 tab PO QID PRN (Reason: pain) Qty: 14 0RF ondansetron 4 mg tablet,disintegrating 4 mg PO Q8H PRN (Reason: nausea and vomiting) Qty: 10 0RF prazosin 1 mg capsule 1 mg PO BEDTIME duloxetine 60 mg capsule,delayed release(DR/EC) 60 mg PO levothyroxine cyclobenzaprine 10 mg tablet 10 mg PO TID PRN (Reason: muscle spasm) Qty: 15 0RF doxycycline hyclate 100 mg tablet 100 mg PO BID Qty: 20 0RF Referrals: Mundo Dinero ARNP [Primary Care Provider] - Stand Alone Forms: Patient Portal/API
--- NOTE | 2022-06-25 23:30 | PC.NURSE ---
Provider Josh Kenyon gave verbal order not to do the order swab for covid, rsv and flu that was order by previous provider. He also gave verbal order not to place bacitracin on the scabbed wound on patient right wrist.
[2022-06-25] MEDS: cephALEXin 250 MG CAPSULE 500 MG PO (23:36)
== END 2022-06-25 23:41 | disposition home or self-care (01) ==
PROVIDERS: Nurse Practitioner Critical Care Medicine; Emergency Provider Emergency Medicine; PCP Nurse Practitioner Family
DX: T81.41XA Infection following a procedure, superficial incisional surgical site, initial encounter (principal)
CPT/HCPCS: 36415; 80053; 82550; 83605; 84145; 84484; 85025; 87070; 87075; 87077; 87147; 87186; 87205; 99283

== ENCOUNTER 2022-12-23 22:42 | Emergency (ER) | payer MEDICARE, OTHER, SELFPAY ==
[2022-12-23 22:47] VITALS: BP 123/78; PULSE 109; RESP 16; TEMP 36.8; O2SAT 97; BMI 34.8
[2022-12-23] MEDS: TET,DIPH,PERTUSS(ACELL),VAC/PF 0.5 ML SYRINGE IM (23:21)
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
[2022-12-24 01:57] VITALS: BP 120/70; PULSE 80; RESP 16; TEMP 36.4; O2SAT 97
== END 2022-12-24 01:58 | disposition home or self-care (01) ==
PROVIDERS: Emergency Provider Emergency Medicine; PCP Nurse Practitioner Family
DX: S01.01XA Laceration without foreign body of scalp, initial encounter (principal); V86.95XA Unspecified occupant of 3- or 4- wheeled all-terrain vehicle (ATV) injured in nontraffic accident, initial encounter; Z23 Encounter for immunization
CPT/HCPCS: 13121; 70450; 72125; 90471; 99283; 99284; 90715

== ENCOUNTER 2025-04-12 14:53 | Emergency (ER) | payer MEDICARE, OTHER, SELFPAY ==
[2025-04-12 15:10] VITALS: BP 180/103; PULSE 110; RESP 18; TEMP 36.5; O2SAT 98; BMI 33.2
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
--- NOTE | 2025-04-12 15:30 | ED.ANIMALBIT ---
HPI - Animal Bite <Amy Rubio PA-C - Last Filed: 04/12/25 18:31> General Chief Complaint: Animal Bite Stated Complaint: Dog bite L hand, through nail bed Time Seen by Provider: 04/12/25 15:18 Source: patient Mode of arrival: Ambulatory History of Present Illness HPI narrative: Mr. Marie is a pleasant, right-hand dominant, 54 year old male with a past medical history of hypertension, TBI who presents to the emergency department for injury to his left thumb after his dog bit it just prior to arrival. [facility] when his dog accidentally bit his left thumb. Patient is up-to-date on his Tdap 12/24/2022 and dog is up-to-date on its vaccines including rabies. Patient now has a laceration through the tip of the left thumb, the nail is split in half and he has significant pain. He does not take any blood thinners. He is still is able to flex and extend the interphalangeal joint. No other injuries. He is here with his . Related Data Home Medications ?Medication ?Instructions ?Recorded ?Confirmed lisinopril 10 mg tablet 10 mg PO DAILY ##0 02/10/16 11/25/21 sertraline 100 mg tablet (Zoloft) 200 mg PO DAILY ##0 02/10/16 02/14/19 cholecalciferol (vitamin D3) 25 1,000 unit PO DAILY 02/03/19 02/24/20 mcg (1,000 unit) capsule levothyroxine 1 tab PO DAILY 02/03/19 11/25/21 duloxetine 60 mg capsule,delayed 60 mg PO 11/25/21 release levothyroxine 11/25/21 prazosin 1 mg capsule 1 mg PO BEDTIME 11/25/21 11/25/21 Previous Rx's ?Medication ?Instructions ?Recorded hydrocodone 5 mg-acetaminophen 325 1 tab PO Q4-6H PRN pain #7 tabs 02/14/19 mg tablet ondansetron 4 mg disintegrating 4 mg PO Q6H PRN nausea and 02/14/19 tablet vomiting #10 tabs ciprofloxacin 0.3 %-dexamethasone 4 drop EAR-LEFT BID #7.5 mL 02/23/20 0.1 % ear drops,suspension (Ciprodex) ciprofloxacin HCl 750 mg tablet 750 mg PO BID #10 tabs 02/23/20 ondansetron 4 mg disintegrating 4 mg PO Q8H PRN nausea and 02/24/20 tablet vomiting #10 tabs oxycodone-acetaminophen 5 mg-325 1 - 2 tab PO QID PRN pain #14 tabs 02/24/20 mg tablet (Percocet) cyclobenzaprine 10 mg tablet 10 mg PO TID PRN muscle spasm #15 11/25/21 tabs doxycycline hyclate 100 mg tablet 100 mg PO BID #20 tabs 03/28/22 amoxicillin 875 mg-potassium 1 tab PO BID 10 days #20 tabs 04/12/25 clavulanate 125 mg tablet ondansetron 4 mg disintegrating 4 mg PO Q8H PRN nausea and 04/12/25 tablet vomiting #20 tabs Allergies Allergy/AdvReac Type Severity Reaction Status Date / Time No Known Drug Allergies Allergy Verified 04/12/25 15:10 Review of Systems <Amy Rubio PA-C - Last Filed: 04/12/25 18:31> Review of Systems ROS Unobtainable: All systems reviewed & are unremarkable except as noted in HPI and below Patient History <Amy Rubio PA-C - Last Filed: 04/12/25 18:31> Medical History Depression Hypothyroidism Hypertension Surgical History Previous back surgery Social History Smoking Status: Never smoker Smoking Status: Never smoker alcohol intake frequency: a few times a month Exam <Amy Rubio PA-C - Last Filed: 04/12/25 18:31> Narrative Exam Narrative: GENERAL: 54 year old patient appears stated age. Well-developed patient, in mild distress 2/2 L thumb pain. HEAD: Atraumatic. Normocephalic. NECK: Trachea midline. Cervical ROM intact. CARDIOVASCULAR: Regular rate RESPIRATORY: ?Nonlabored respirations. ?Speaking in clear, full sentences. ?Clear to auscultation. Breath sounds equal bilaterally. No wheezes, rales, or rhonchi. ? EXTREMITIES: LEFT thumb/1st digit with horizontal/lateral nail break with laceration extending to the ulnar side of the thumb pad. He is able to flex and extend at the interphalangeal joint. Brisk cap refill is present distal to the wound. Bleeding controlled with direct pressure. NEURO: AOx3. ?Clear speech. ?Moves all 4 extremities appropriately. SKIN: Left thumb laceration through the nail/nail bed. Initial Vital Signs Initial Vital Signs: Vital Signs Temperature 97.7 F 04/12/25 15:10 Pulse Rate 110 H 04/12/25 15:10 Respiratory Rate 18 04/12/25 15:10 Blood Pressure 180/103 H 04/12/25 15:10 Pulse Oximetry 98 04/12/25 15:10 Oxygen Delivery Method Room Air 04/12/25 15:10 <Arpan Coyne MD - Last Filed: 04/12/25 18:59> Initial Vital Signs Initial Vital Signs: Vital Signs Temperature 97.7 F 04/12/25 15:10 Pulse Rate 110 H 04/12/25 15:10 Respiratory Rate 18 04/12/25 15:10 Blood Pressure 180/103 H 04/12/25 15:10 Pulse Oximetry 98 04/12/25 15:10 Oxygen Delivery Method Room Air 04/12/25 15:10 Procedures <Amy Rubio PA-C - Last Filed: 04/12/25 18:31> Laceration Repair Laceration 1: Site: hand (Left thumb) Side (If applicable): left Size (cm): 3 Description: linear and irregular Depth: involves muscle layer Local Anesthetic: lidocaine 1% (digital block, 4ml used) Pre-repair: wound explored and irrigated extensively Skin layer closed with: other (monocryl ) Skin layer suture size: 5-0 Number of sutures: 7 Technique: simple, interrupted Course <Amy Rubio PA-C - Last Filed: 04/12/25 18:31> Orders Ordered: ED Orders 04/12/25 15:17 XR finger LT min 2V Stat 04/12/25 17:18 Consult to [facility] Stat Discontinued Medications Hydrocodone Bitart/Acetaminophen (Hydrocodone/Acet 5/325 Tablet) 1 tab PO NOW ONE Stop: 04/12/25 15:30 Last Admin: 04/12/25 15:35 Dose: 1 tab Documented By: AMBROSIO Amoxicillin/Clavulanate Potassium (Amoxicillin/Clav 875/125 Mg) 1 tab PO NOW ONE Stop: 04/12/25 15:42 Last Admin: 04/12/25 15:47 Dose: 1 tab Documented By: AMBROSIO Lidocaine HCl (Lidocaine 1% 20 Ml) 6 ml SUBCUT NOW ONE Stop: 04/12/25 15:30 Ondansetron HCl (Ondansetron 4 Mg Odt) 4 mg SL NOW ONE Stop: 04/12/25 15:30 Last Admin: 04/12/25 15:35 Dose: 4 mg Documented By: AMBROSIO Vital Signs Vital signs: Vital Signs - 8 hr 04/12/25 15:10 Temperature 97.7 F Pulse Rate 110 H Respiratory Rate 18 Blood Pressure 180/103 H Pulse Oximetry 98 Oxygen Delivery Method Room Air <Arpan Coyne MD - Last Filed: 04/12/25 18:59> Orders Ordered: ED Orders 04/12/25 15:17 XR finger LT min 2V Stat 04/12/25 17:18 Consult to [facility] Stat Discontinued Medications Hydrocodone Bitart/Acetaminophen (Hydrocodone/Acet 5/325 Tablet) 1 tab PO NOW ONE Stop: 04/12/25 15:30 Last Admin: 04/12/25 15:35 Dose: 1 tab Documented By: AMBROSIO Amoxicillin/Clavulanate Potassium (Amoxicillin/Clav 875/125 Mg) 1 tab PO NOW ONE Stop: 04/12/25 15:42 Last Admin: 04/12/25 15:47 Dose: 1 tab Documented By: AMBROSIO Lidocaine HCl (Lidocaine 1% 20 Ml) 6 ml SUBCUT NOW ONE Stop: 04/12/25 15:30 Ondansetron HCl (Ondansetron 4 Mg Odt) 4 mg SL NOW ONE Stop: 04/12/25 15:30 Last Admin: 04/12/25 15:35 Dose: 4 mg Documented By: AMBROSIO Vital Signs Vital signs: Vital Signs - 8 hr 04/12/25 15:10 Temperature 97.7 F Pulse Rate 110 H Respiratory Rate 18 Blood Pressure 180/103 H Pulse Oximetry 98 Oxygen Delivery Method Room Air MDM - Animal Bite <Amy Rubio PA-C - Last Filed: 04/12/25 18:31> Medical Records Attestation: I reviewed the patient's medical records. Imaging Data Left Finger XR: My Impression: On my independent interpretation of left thumb x-ray there is a mildly displaced fracture through the distal phalanx. Radiologist's Impression: PROCEDURE: XR FINGER LT MIN 2V INDICATIONS: animal bite TECHNIQUE: AP hand, 2 views of the left thumb finger(s) acquired. COMPARISON: None. FINDINGS: Bones: Acute transverse fracture of the distal tuft of the thumb with mild distal displacement of the distal fracture fragment. Overlying soft tissue wound with bandage. Adjacent soft tissue gas foci. The joints are maintained. Soft tissues: No suspicious soft tissue calcifications. IMPRESSION: Acute transverse fracture of the thumb distal phalangeal tuft with overlying wound concerning for an open fracture and involvement of the nail bed, correlate with physical exam findings and consider prophylactic antibiotic therapy. Dictated by: Gilles Vera M.D. on 04/12/2025 at 15:58 Approved by: Gilles Vera M.D. on 04/12/2025 at 15:59 MDM Narrative Medical decision making narrative: Right-hand dominant, 54 year old male with a past medical history of hypertension, TBI as who presents to the emergency department for injury to his left thumb after his dog but it just prior to arrival. Differential diagnosis includes but is not limited to dog bite, open fracture, nailbed laceration, finger laceration, foreign body, etc. On exam patient is in no acute distress, nontoxic appearing, vital signs reveal elevated blood pressure and heart rate in triage, he is in pain due to his left thumb. Left thumb reveals a horizontal crack/laceration through the nail extending onto the ulnar side of the thumb distal tip. Bedside x-ray reveals fracture of the distal phalanx. His Tdap is up-to-date. We will treat with pain medication, digital block, consult ortho for further recommendations of injury, likely remove the nail. We will treat pain with [place] Zofran, is here. X-ray reviewed at bedside reveals fracture of the distal phalanx of the thumb. 1540: Discussed case with the orthopedic surgeon on-call, Dr. Griffin. Discussed positive fracture, nailbed laceration. She recommends removing the nail, irrigating extensively, using Monocryl to repair nailbed laceration using simple interrupted sutures, then placing Xeroform on top of the exposed nail bed followed by Telfa and a splint and she will see the patient in clinic. Digital block was performed of left thumb, followed by irrigation with 3 L of normal saline with Betadine. Nail was removed. 7 simple interrupted Monocryl sutures were used to repair nailbed and finger tip laceration. Patient tolerated procedure extremely well. Xeroform was applied to nailbed followed by Telfa, follow up by [place], aluminum splint on dorsal thumb, secured with Coban. Discussed proper wound care with the patient, the importance of completion of antibiotics and follow up with Orthopedics. We also discussed strict ER return precautions. Patient his verbalized understanding of all information agreeable to the plan. He is ambulatory and stable for discharge home, I do not see repeat vital signs documented in the chart however he was on the monitor in his ED room and heart rate normalized. Discharge Plan Departure Patient Disposition: Home Clinical Impression: Open fracture of tuft of distal phalanx of left thumb Dog bite of left thumb Qualifiers: Encounter type: initial encounter Qualified Code(s): S61.052A - Open bite of left thumb without damage to nail, initial encounter Nailbed laceration, finger Qualifiers: Encounter type: initial encounter Qualified Code(s): S61.319A - Laceration without foreign body of unspecified finger with damage to nail, initial encounter Instructions: DI for Finger Fracture, DI for Dog Bite Activity Restrictions/Additional Instructions: Dear Mr. Marie, Thank you for coming to the emergency department. Today you were evaluated for a dog bite to the left thumb. I consulted with our orthopedic surgeon, Dr. Griffin, with [facility]. Your left thumb was numbed and then the nail was removed and the laceration was repaired using absorbable sutures. Please keep the dressing on for the next 24 hours. After this time please remove the splint in the dressing, wash the wound with warm soapy water, then apply antibiotic ointment, bandage, and the splint. Please do this every single day 1 to 2 times a day. Please complete the full course of oral antibiotics as well. Please keep the dressing on your wound clean, dry, and intact for the next 24 hours. After this time, you may remove the dressing and gently clean the wound with soap and water, then pat dry. Keep the wound clean and covered. Avoid soaking the wound in any water such as a bath, pool, or the ocean. If you develop any signs of wound infection such as increased redness, pus drainage, streaking redness, or fevers, please return to the ER immediately for evaluation. Once sutures are removed and the wound has healed, apply sunscreen daily to reduce the appearance of scars. Please follow up with your primary care doctor within the next 2-3 days for ER follow-up. (If you do not have a PCP you can call [phone]. ?to schedule an appointment with an [facility] Primary Care Provider) IF YOU DEVELOP ANY NEW OR WORSENING SYMPTOMS, RETURN TO THE ER! Please read the attached instructions, they highlight more specific treatments and interventions for you at home. Thank you for letting me participate in your care, Amy Rubio PA-C Prescriptions: New amoxicillin-pot clavulanate 875-125 mg tablet 1 tab PO BID 10 Days Qty: 20 0RF ondansetron 4 mg tablet,disintegrating 4 mg PO Q8H PRN (Reason: nausea and vomiting) Qty: 20 0RF No Action sertraline [Zoloft] 100 MG tablet 200 mg PO DAILY Qty: 0 lisinopril 10 MG tablet 10 mg PO DAILY Qty: 0 cholecalciferol (vitamin D3) 1,000 unit capsule 1,000 unit PO DAILY levothyroxine 1 tab PO DAILY Patient Comments: Patient and spouse unsure of strength. State upped to possibly 200mcg. Has been changed. 02/03/19 hydrocodone-acetaminophen 5-325 mg tablet 1 tab PO Q4-6H PRN (Reason: pain) Qty: 7 0RF ondansetron 4 mg tablet,disintegrating 4 mg PO Q6H PRN (Reason: nausea and vomiting) Qty: 10 0RF ciprofloxacin HCl 750 mg tablet 750 mg PO BID Qty: 10 0RF Ciprodex 0.3-0.1 % drops,suspension 4 drop EAR-LEFT BID Qty: 7.5 0RF oxycodone-acetaminophen [Percocet] 5-325 mg tablet 1 - 2 tab PO QID PRN (Reason: pain) Qty: 14 0RF ondansetron 4 mg tablet,disintegrating 4 mg PO Q8H PRN (Reason: nausea and vomiting) Qty: 10 0RF prazosin 1 mg capsule 1 mg PO BEDTIME duloxetine 60 mg capsule,delayed release(DR/EC) 60 mg PO levothyroxine cyclobenzaprine 10 mg tablet 10 mg PO TID PRN (Reason: muscle spasm) Qty: 15 0RF doxycycline hyclate 100 mg tablet 100 mg PO BID Qty: 20 0RF Referrals: Mundo Dinero ARNP [Primary Care Provider, Medical] Maya Griffin DO [Physician, Orthopedic Surgery] Referral Note: fracture and dog bite left thumb Stand Alone Forms: Patient Portal/API ED Sign-out <Arpan Coyne MD - Last Filed: 04/12/25 18:59> Cosign ED Attending Cosignature Attestation: I was immediately available in the department for consultation. ?This documentation has been reviewed and I agree with assessment and plan. Supervised by Arpan Coyne MD
[2025-04-12] MEDS: ONDANSETRON 4 MG ODT SL (15:35)
[2025-04-12] MEDS: AMOXICILLIN/CLAV 875/125 MG 1 TAB PO (15:47)
--- NOTE | 2025-04-12 16:03 | PC.NURSE ---
provider at bedside for repair
== END 2025-04-12 17:38 | disposition home or self-care (01) ==
PROVIDERS: Emergency Provider Physician Assistant; PCP Nurse Practitioner Family
DX: S62.522B Displaced fracture of distal phalanx of left thumb, initial encounter for open fracture (principal); W54.0XXA Bitten by dog, initial encounter
CPT/HCPCS: 12002; 73140; 99283